=== PATIENT | female | born 1930 | race Caucasian/White ===

== ENCOUNTER → 2017-04-27 | Outpatient (CLI) | payer OTHER | LOC: FIMAGING 09:50 | PROVIDERS: ATTEND Internal Medicine | DX: N28.9 Disorder of kidney and ureter, unspecified (principal) ==

== ENCOUNTER 2017-08-21 11:26 | Inpatient (IN) | payer OTHER ==
--- NOTE | 2017-08-21 11:34 | EDPHY ---
H & P Time Seen by Provider: 08/21/17 11:28 HPI/ROS: CHIEF COMPLAINT: slurred speech/fall HISTORY OF PRESENT ILLNESS: The patient is an 87-year-old female who presents to the emergency department as a stroke alert. Per report, patient had a fall 615 this morning while getting out of bed. Around 1045 the patient had a 2nd fall while getting out of the shower. She fell backwards out of the shower onto the floor. The patient's daughter helped her up from the floor. She noticed that the patient had facial droop and slurring. This subsequently resolved. However, when EMS was present they again noticed the patient developed slurred speech and facial droop at 11:04 a.m. Those symptoms persisted until their arrival into the emergency department. Pt with mild dizziness. No headache. No nausea or vomiting. Patient states she has increased swelling in her lower extremity over the past few months. REVIEW OF SYSTEMS: My complete review of systems is negative except as mentioned in the HPI. Past Medical/Surgical History: Includes hypertension, diabetes Past surgical history: Includes recent thyroidectomy Social history: Patient lives at home Smoking Status: Never smoked Physical Exam: Vitals noted GENERAL: No acute distress, alert. HEENT: Eyes normal to inspection, normal pharynx, no signs of dehydration. NECK: No thyromegaly, no lymphadenopathy, supple. RESPIRATORY: Clear to auscultation bilaterally, no rales, rhonchi or wheezing. CVS: Regular rate and rhythm, no rubs, murmurs, or gallops. ABDOMEN: Soft, nontender, nondistended, no organomegaly. BACK: Normal to inspection, no CVA tenderness. Multiple abrasions. SKIN: Normal color, no rash, warm, dry. No pallor. EXTREMITIES: No pedal edema, no calf tenderness, no Homans sign or cords, no joint swelling. NEURO/PSYCH: Higher functions: Alert and Oriented x3. Slightly slurred speech. Normal cognition. Normal mood and affect. Cranial nerves: Normal as tested. Cerebellar: No gross incoordination. Peripheral exam: Decreased right upper extremity strength. Decreased bilateral lower extremity strength right greater than left. Normal sensation. Normal reflexes. NIHSS Facial palsy 2 Motor arm right 1 Motor leg right 3 Motor leg left 2 Dysarthria 1 Total 9 Constitutional: Initial Vital Signs Temperature (C) 37 C 08/21/17 11:26 Heart Rate 63 08/21/17 11:26 Respiratory Rate 18 08/21/17 11:26 Blood Pressure 165/83 H 08/21/17 11:26 O2 Sat (%) 93 08/21/17 11:26 O2 Delivery Mode Room Air O2 (L/minute) 2 Allergies/Adverse Reactions: ciprofloxacin [From Cipro] Allergy (Severe, Verified 04/09/15 17:25) codeine Allergy (Severe, Verified 04/09/15 17:25) Hives nitrofurantoin [Nitrofurantoin] Allergy (Verified 04/09/15 17:25) Penicillins Allergy (Verified 04/09/15 17:25) sulfamethoxazole [From Bactrim] Allergy (Verified 04/09/15 17:25) trimethoprim [From Bactrim] Allergy (Verified 04/09/15 17:25) Home Medications: Medication Instructions Recorded Metoprolol Tartrate [Lopressor 25 100 mg PO BID 05/27/11 mg (RX)] Simvastatin [Zocor 10 mg] 20 mg PO DAILY18 05/27/11 Tolterodine Tartrate [Detrol LA] 4 mg PO HS 05/27/11 metFORMIN HCL [Glucophage 500 mg 1,000 mg PO BIDMEAL 05/27/11 (*)] Hydrochlorothiazide [HCTZ (*)] 12.5 mg PO DAILY 07/15/13 Levothyroxine [Synthroid 125 mcg 150 mcg PO DAILY@0600 07/15/13 (*)] Januvia 50 mg 100 mg PO DAILY 04/09/15 Preservision Softgel 2 tab PO DAILY 12/14/15 Ranitidine HCl 150 mg PO BID 12/14/15 Medical Decision Making - Diagnostics Imaging Results: Imaging Impressions Head CT 08/21/17 11:28 Impression: 1. No acute intracranial process. 2. Age-appropriate generalized cerebral volume loss with chronic microvascular ischemic disease. ED Course/Re-evaluation: I met EMS on arrival. 1135: I spoke Dr. Garcia from [facility]. I discussed the case. We are awaiting CT results. 1140: I called radiology to obtain CT results. Pending 1142: I spoke with Dr. Bowser with CT results. Negative noncontrast head CT. I paged Dr. Garcia.' EKG shows normal sinus rhythm, normal rate, normal axis, normal intervals. There are no ST or T-wave abnormalities. EKG is normal as interpreted by me. 1153: I discussed the case with . He recommends tPA once the patient' s systolic blood pressures below 180. He recommended hydralazine. This was ordered and given. (hydralazine 10 mg IV) Awaiting for the patient's daughter to arrive. The patient consents to tPA administration. 1200: Repeat blood pressure is 182 systolic. HR 62. Labetalol 10 mg IV was given. Patient's blood pressure improved. TPA was given. Please refer the nursing note. I discussed the plan of care with the patient's daughter who arrived in the emergency department. I rechecked the patient on numerous occasions. She was stable throughout her stay. I discussed case with the hospitalist service. Patient will be admitted to the ICU. Differential Diagnosis: My differential includes but is not limited to ischemic CVA, hemorrhagic CVA, subdural hematoma, epidural hematoma, dissection, aneurysm, electrolyte abnormality, sugar abnormality Critical Care Time: The patient required 35 min of critical care time. This was exclusive of any unbundled procedure. This was due the patient's presentation, time spent at the bedside, frequent rechecks, tPA administration, consultation with Neurology. - Data Points Laboratory Results: Laboratory Results 08/21/17 11:38 08/21/17 11:38 08/21/17 08/21/17 08/21/17 11:38 11:38 11:38 WBC 10.24 10^3/uL H 10^3/uL (3.80-9.50) RBC 5.32 10^6/uL 10^6/uL (4.18-5.33) Hgb 15.9 g/dL g/dL (12.6-16.3) POC Hgb Hct 49.4 % H % (38.0-47.0) POC Hct MCV 92.9 fL fL (81.5-99.8) MCH 29.9 pg pg (27.9-34.1) MCHC 32.2 g/dL L g/dL (32.4-36.7) RDW 12.8 % % (11.5-15.2) Plt Count 224 10^3/uL 10^3/uL (150-400) MPV 10.1 fL fL (8.7-11.7) Neut % (Auto) Not Reported Lymph % (Auto) Not Reported [place] % (Auto) Not Reported Eos % (Auto) Not Reported Baso % (Auto) Not Reported Nucleat RBC Rel Count Not Reported Absolute Neuts (auto) Not Reported Absolute Lymphs (auto) Not Reported Absolute Monos (auto) Not Reported Absolute Eos (auto) Not Reported Absolute Basos (auto) Not Reported Absolute Nucleated RBC Not Reported Immature Gran % Not Reported Seg Neutrophils % 73.0 % % Band Neutrophils % 9.0 % % Lymphocytes % 10.0 % % Monocytes % 7.0 % % Eosinophils % 1.0 % % Basophils % 0 % % Metamyelocytes % 0 % % Myelocytes % 0 % % Promyelocytes % 0 % % Blast Cells % 0 % % Immature Gran # Not Reported Absolute Seg Neuts 7.48 10^/uL H 10^/uL (1.70-6.50) Absolute Band Neuts 0.92 10^3/uL H 10^3/uL (0.00-0.70) Absolute Lymphocytes 1.02 10^3/uL 10^3/uL (1.00-3.00) Absolute Monocytes 0.72 10^3/uL 10^3/uL (0.30-0.80) Absolute Eosinophils 0.10 10^3/uL 10^3/uL (0.03-0.40) Absolute Basophils 0.00 10^3/uL L 10^3/uL (0.02-0.10) Absolute Metamyelocyte 0.00 10^3/mL 10^3/mL (0.00-0.00) Absolute Myelocytes 0.00 10^3/mL 10^3/mL (0.00-0.00) Absolute Promyelocytes 0.00 10^3/uL 10^3/uL (0.00-0.00) Absolute Plasma Cells 0.00 10^3/uL 10^3/uL (0.00-0.00) Nucleated RBCs 0 /100 WBC /100 WBC (0-0) RBC/WBC/PLT Morphology NORMAL (NORMAL) Absolute Blast Cells 0.00 10^3/uL 10^3/uL (0.00-0.00) Plasma Cells % 0 % % Platelet Estimate ADEQUATE (ADEQ) PT 13.7 SEC SEC (12.0-15.0) INR 1.03 (0.83-1.16) APTT 28.2 SEC SEC (23.0-38.0) POC Sodium Sodium 140 mEq/L mEq/L (135-145) POC Potassium Potassium 4.9 mEq/L mEq/L (3.3-5.0) POC Chloride Chloride 104 mEq/L mEq/L (97-110) Carbon Dioxide 26 mEq/l mEq/l (22-31) Anion Gap 10 mEq/L mEq/L (8-16) POC BUN BUN 41 mg/dL H mg/dL (7-23) Creatinine 1.3 mg/dL H mg/dL (0.6-1.0) POC Creatinine Estimated GFR 39 Glucose 216 mg/dL H mg/dL (70-100) POC Glucose Calcium 10.0 mg/dL mg/dL (8.5-10.4) 08/21/17 11:36 WBC RBC Hgb POC Hgb 16.0 gm/dL gm/dL (12.6-16.3) Hct POC Hct 47 % % (38-47) MCV MCH MCHC RDW Plt Count MPV Neut % (Auto) Lymph % (Auto) [place] % (Auto) Eos % (Auto) Baso % (Auto) Nucleat RBC Rel Count Absolute Neuts (auto) Absolute Lymphs (auto) Absolute Monos (auto) Absolute Eos (auto) Absolute Basos (auto) Absolute Nucleated RBC Immature Gran % Seg Neutrophils % Band Neutrophils % Lymphocytes % Monocytes % Eosinophils % Basophils % Metamyelocytes % Myelocytes % Promyelocytes % Blast Cells % Immature Gran # Absolute Seg Neuts Absolute Band Neuts Absolute Lymphocytes Absolute Monocytes Absolute Eosinophils Absolute Basophils Absolute Metamyelocyte Absolute Myelocytes Absolute Promyelocytes Absolute Plasma Cells Nucleated RBCs RBC/WBC/PLT Morphology Absolute Blast Cells Plasma Cells % Platelet Estimate PT INR APTT POC Sodium 141 mEq/L mEq/L (135-145) Sodium POC Potassium 4.7 mEq/L mEq/L (3.3-5.0) Potassium POC Chloride 105 mEq/L mEq/L (97-110) Chloride Carbon Dioxide Anion Gap POC BUN 39 mg/dL H mg/dL (7-23) BUN Creatinine POC Creatinine 1.4 mg/dL H mg/dL (0.6-1.0) Estimated GFR Glucose POC Glucose 229 mg/dL H mg/dL (70-100) Calcium Point of Care Test Results: Chemistry 08/21/17 11:36 POC Sodium 141 mEq/L mEq/L (135-145) POC Potassium 4.7 mEq/L mEq/L (3.3-5.0) POC Chloride 105 mEq/L mEq/L (97-110) POC BUN 39 mg/dL H mg/dL (7-23) POC Creatinine 1.4 mg/dL H mg/dL (0.6-1.0) POC Glucose 229 mg/dL H mg/dL (70-100) ISTAT H&H 08/21/17 11:36 POC Hgb 16.0 gm/dL gm/dL (12.6-16.3) POC Hct 47 % % (38-47) Departure - Departure Disposition: [facility] Inpatient Acute Clinical Impression: CVA (cerebral vascular accident) Qualifiers: CVA mechanism: unspecified Qualified Code(s): I63.9 - Cerebral infarction, unspecified Condition: Good
--- NOTE | 2017-08-21 11:44 | CPEKG ---
Heart Rate: 60 RR Interval: 1000 P-R Interval: 160 QRSD Interval: 78 QT Interval: 416 QTC Interval: 416 P [place]: 22 QRS [place]: 2 T Wave [place]: 53 EKG Severity - NORMAL ECG - EKG Impression: SINUS RHYTHM Electronically Signed By: Ignacio Olmos 24-Aug-2017 16:31:34
[2017-08-21] MEDS ORDERED: ALTEPLASE 100 MG/100 ML VIAL IV ONE ×3 (11:46→12:13)
[2017-08-21] MEDS ORDERED: hydrALAZINE 20 MG/ML VIAL ONE (11:53)
[2017-08-21] MEDS ORDERED: hydrALAZINE 20 MG/ML VIAL IVP ONE (11:54)
[2017-08-21] MEDS ORDERED: LABETALOL HCL 5 MG/ML 20 ML MDV ONE (11:58)
[2017-08-21] MEDS ORDERED: LABETALOL HCL 5 MG/ML 20 ML MDV IVP ONE (12:02)
[2017-08-21 12:12] LABS: PLATELET COUNT 224 10^3/uL (150-400)
[2017-08-21] MEDS ORDERED: ALTEPLASE 1 MG/ML SYR IV ONE (12:13)
[2017-08-21 12:24] LABS: INR 1.03 (0.83-1.16); PROTIME(PATIENT) 13.7 SEC (12.0-15.0)
[2017-08-21] MEDS ORDERED: NS 50 ML BAG IV ONE (12:45)
[2017-08-21] MEDS ORDERED: ONDANSETRON DISINTEGRATING 4 MG TAB PO PRN (12:56)
[2017-08-21] MEDS ORDERED: ONDANSETRON 4 MG/2 ML VIAL IVP PRN (12:56)
[2017-08-21] MEDS ORDERED: ACETAMINOPHEN 325 MG TAB PO PRN (12:56)
[2017-08-21] MEDS ORDERED: D5W 1/2 NS W/ 20 KCl/L 1,000 ML IV SCH (13:00)
[2017-08-21] MEDS ORDERED: hydrALAZINE 20 MG/ML VIAL IVP PRN (13:01)
[2017-08-21] MEDS ORDERED: IOPAMIDOL (ISOVUE 370) 100 ML BTL IV ONE (13:04)
[2017-08-21] MEDS ORDERED: D5W 1/2 NS 1,000 ML IV SCH (17:00)
[2017-08-21] MEDS ORDERED: D50W 25 GM/50 ML SYR IVP PRN (18:10)
--- NOTE | 2017-08-21 18:17 | PDGENHP ---
History and Physical - Chief Complaint Acute paresis - History of Present Illness Primary care provider: Dr. Rocio Vargas Primary surgeon: Dr. Tyson Crawford Primary cardiology: [facility] Primary insurance agency sales manager: Dr. Garcia HPI: 87-year-old female presenting with acute unilateral paresis and associated dysarthria. The patient was a stroke alert presenting to our emergency department with the following time course: The patient had been feeling well on the day prior to presentation, had had normal oral intake, and had gone to bed on 08/20 without any symptoms. Upon awakening at 6:15 a.m. On the day of presentation, the patient fell while she was attempting to get out of bed. The fall was unwitnessed, and the patient remained on the floor for approximately 3 hr. The patient's daughter found her on the floor sometime after 9:00 a.m., and helped the patient get up and get into the bathroom. While the patient was attempting to clean herself up at approximately 10:00 a.m., she experienced a recurrent fall, falling backwards and striking her head and buttocks. She experienced some trauma and laceration from glass on her buttocks. At this time, the patient's daughter noted that her speech was particularly slurred, she was experiencing a notable right-sided facial droop, and she was having difficulty moving her right upper extremity and right lower extremity. The patient called EMS and after EMS arrived, the symptoms began to improve. Around 11:00 a.m., the patient's symptoms began to reoccur as she was being transported to [facility]. After arrival, the patient's NIH stroke scale was 9, she was evaluated by [facility], and after receiving IV hydralazine and IV labetalol, she received IV tPA. Her head CT demonstrated no intracranial hemorrhage, her CT angiogram demonstrated no large vessel obstructive lesions, and the patient had no clearly identifiable contraindications to tPA. The patient does have Eliquis on her home medication reconciliation list, but the patient is fairly certain that she has not been taking this medication at home. She is uncertain as to why she has been prescribed this medication. History Information - Allergies/Home Medication List Allergies/Adverse Reactions: ciprofloxacin [From Cipro] Allergy (Severe, Verified 04/09/15 17:25) codeine Allergy (Severe, Verified 04/09/15 17:25) Hives nitrofurantoin [Nitrofurantoin] Allergy (Verified 04/09/15 17:25) Penicillins Allergy (Verified 04/09/15 17:25) sulfamethoxazole [From Bactrim] Allergy (Verified 04/09/15 17:25) trimethoprim [From Bactrim] Allergy (Verified 04/09/15 17:25) Home Medications: Metoprolol Tartrate [Lopressor 25 mg (RX)] 100 mg PO BID 05/27/11 [Last Taken ] Simvastatin [Zocor 10 mg] 20 mg PO DAILY18 05/27/11 [Last Taken 08/20/17] Tolterodine Tartrate [Detrol LA] 4 mg PO HS 05/27/11 [Last Taken 08/07/17] Levothyroxine [Synthroid 125 mcg (*)] 150 mcg PO DAILY@0600 07/15/13 [Last Taken 08/20/17] Apixaban [Eliquis] 2.5 mg PO BID 08/21/17 [Last Taken Unknown] C/E/Zn/Cu/OM3/DHA/EPA/LUT/ZEAX [Preservision Areds 2 Softgel] 2 each PO DAILY [Last Taken 08/20/17] Insulin Glargine [Lantus 100 UNITS/ML (*)] 5 units SC HS 08/21/17 [Last Taken ] Ranitidine HCl 150 mg PO BID 08/21/17 [Last Taken 08/20/17] Spironolactone [Spironolactone] 25 mg PO DAILY 08/21/17 [Last Taken Unknown] sitaGLIPtin PHOSPHATE [Januvia 100 MG (*)] 100 mg PO DAILY 08/21/17 [Last Taken 08/20/17] I have personally reviewed and updated: family history, medical history, social history, surgical history - Past Medical History COPD, DVT (Approximately 2 years ago, maybe receiving Eliquis but it is somewhat unclear) Additional medical history: Chronic kidney disease stage 3 with baseline creatinine between 1.6-2.0. Hypertension. Diabetes mellitus with last hemoglobin A1c 7.5% in July of 2016. Hurthle cell thyroid cancer. Urinary incontinence - Surgical History Additional surgical history: Total thyroidectomy July of 2013. Tonsillectomy. Bunionectomy. Hysterectomy - Family History Additional family history: Daughter with CVA secondary to carotid stenosis - Social History Smoking Status: Never smoked Alcohol Use: None Drug Use: None Additional social history: Independent in ADLs, lives with daughter and home Review of Systems Review of Systems: ROS: 10pt was reviewed & negative except for what was stated in HPI & below Neurological: Reports: paresthesia, weakness, other (Dysarthria) Physical Exam Physical Exam: Temp Pulse Resp BP Pulse Ox 36.7 C 70 22 H 134/63 H 98 08/21/17 16:45 08/21/17 18:00 08/21/17 18:00 08/21/17 18:00 08/21/17 18:00 O2 (L/minute) 1 Constitutional: no apparent distress, not in pain, chronically ill appearing, uncomfortable Eyes: PERRL, anicteric sclera Ears, Nose, Mouth, Throat: moist mucous membranes, hearing normal, ears appear normal, no oral mucosal ulcers Cardiovascular: regular rate and rhythym, systolic murmur (2/6 at the sternum), No irregularly irregular, No tachycardia, No edema Respiratory: no respiratory distress, no rales or rhonchi, clear to auscultation Gastrointestinal: normoactive bowel sounds, soft, non-tender abdomen, no palpable masses Skin: warm, other (Skin breaks on posterior buttocks, bleeding) Neurologic: AAOx3, sensation intact bilaterally, weakness (Right lower extremity 1/5 motor strength, right upper extremity 0/5 motor strength, right- sided facial palsy), other (Hemiplegia both eyes to the right past the midline) Psychiatric: interacting appropriately, not anxious, not encephalopathic, thought process linear, flat affect Lab Data & Imaging Review 08/21/17 11:38 08/21/17 11:38 WBC 10.24 10^3/uL (3.80-9.50) H 08/21/17 11:38 RBC 5.32 10^6/uL (4.18-5.33) 08/21/17 11:38 Hgb 15.9 g/dL (12.6-16.3) 08/21/17 11:38 POC Hgb 16.0 gm/dL (12.6-16.3) 08/21/17 11:36 Hct 49.4 % (38.0-47.0) H 08/21/17 11:38 POC Hct 47 % (38-47) 08/21/17 11:36 MCV 92.9 fL (81.5-99.8) 08/21/17 11:38 MCH 29.9 pg (27.9-34.1) 08/21/17 11:38 MCHC 32.2 g/dL (32.4-36.7) L 08/21/17 11:38 RDW 12.8 % (11.5-15.2) 08/21/17 11:38 Plt Count 224 10^3/uL (150-400) 08/21/17 11:38 MPV 10.1 fL (8.7-11.7) 08/21/17 11:38 Neut % (Auto) Not Reported 08/21/17 11:38 Lymph % (Auto) Not Reported 08/21/17 11:38 [place] % (Auto) Not Reported 08/21/17 11:38 Eos % (Auto) Not Reported 08/21/17 11:38 Baso % (Auto) Not Reported 08/21/17 11:38 Nucleat RBC Rel Count Not Reported 08/21/17 11:38 Absolute Neuts (auto) Not Reported 08/21/17 11:38 Absolute Lymphs (auto) Not Reported 08/21/17 11:38 Absolute Monos (auto) Not Reported 08/21/17 11:38 Absolute Eos (auto) Not Reported 08/21/17 11:38 Absolute Basos (auto) Not Reported 08/21/17 11:38 Absolute Nucleated RBC Not Reported 08/21/17 11:38 Immature Gran % Not Reported 08/21/17 11:38 Seg Neutrophils % 73.0 % 08/21/17 11:38 Band Neutrophils % 9.0 % 08/21/17 11:38 Lymphocytes % 10.0 % 08/21/17 11:38 Monocytes % 7.0 % 08/21/17 11:38 Eosinophils % 1.0 % 08/21/17 11:38 Basophils % 0 % 08/21/17 11:38 Metamyelocytes % 0 % 08/21/17 11:38 Myelocytes % 0 % 08/21/17 11:38 Promyelocytes % 0 % 08/21/17 11:38 Blast Cells % 0 % 08/21/17 11:38 Immature Gran # Not Reported 08/21/17 11:38 Absolute Seg Neuts 7.48 10^/uL (1.70-6.50) H 08/21/17 11:38 Absolute Band Neuts 0.92 10^3/uL (0.00-0.70) H 08/21/17 11:38 Absolute Lymphocytes 1.02 10^3/uL (1.00-3.00) 08/21/17 11:38 Absolute Monocytes 0.72 10^3/uL (0.30-0.80) 08/21/17 11:38 Absolute Eosinophils 0.10 10^3/uL (0.03-0.40) 08/21/17 11:38 Absolute Basophils 0.00 10^3/uL (0.02-0.10) L 08/21/17 11:38 Absolute Metamyelocyte 0.00 10^3/mL (0.00-0.00) 08/21/17 11:38 Absolute Myelocytes 0.00 10^3/mL (0.00-0.00) 08/21/17 11:38 Absolute Promyelocytes 0.00 10^3/uL (0.00-0.00) 08/21/17 11:38 Absolute Plasma Cells 0.00 10^3/uL (0.00-0.00) 08/21/17 11:38 Nucleated RBCs 0 /100 WBC (0-0) 08/21/17 11:38 RBC/WBC/PLT Morphology NORMAL (NORMAL) 08/21/17 11:38 Absolute Blast Cells 0.00 10^3/uL (0.00-0.00) 08/21/17 11:38 Plasma Cells % 0 % 08/21/17 11:38 Platelet Estimate ADEQUATE (ADEQ) 08/21/17 11:38 PT 13.7 SEC (12.0-15.0) 08/21/17 11:38 INR 1.03 (0.83-1.16) 08/21/17 11:38 APTT 28.2 SEC (23.0-38.0) 08/21/17 11:38 POC Sodium 141 mEq/L (135-145) 08/21/17 11:36 Sodium 140 mEq/L (135-145) 08/21/17 11:38 POC Potassium 4.7 mEq/L (3.3-5.0) 08/21/17 11:36 Potassium 4.9 mEq/L (3.3-5.0) 08/21/17 11:38 POC Chloride 105 mEq/L (97-110) 08/21/17 11:36 Chloride 104 mEq/L (97-110) 08/21/17 11:38 Carbon Dioxide 26 mEq/l (22-31) 08/21/17 11:38 Anion Gap 10 mEq/L (8-16) 08/21/17 11:38 POC BUN 39 mg/dL (7-23) H 08/21/17 11:36 BUN 41 mg/dL (7-23) H 08/21/17 11:38 Creatinine 1.3 mg/dL (0.6-1.0) H 08/21/17 11:38 POC Creatinine 1.4 mg/dL (0.6-1.0) H 08/21/17 11:36 Estimated GFR 39 08/21/17 11:38 Glucose 216 mg/dL (70-100) H 08/21/17 11:38 POC Glucose 229 mg/dL (70-100) H 08/21/17 11:36 Calcium 10.0 mg/dL (8.5-10.4) 08/21/17 11:38 POC Troponin I 0.01 ng/mL (0.00-0.08) 08/21/17 11:36 Visualized and Interpreted EKG results: Yes EKG Interpretation: Positive for: other (Normal sinus rhythm with Q-wave in lead 3 and AVF) Assessment & Plan Assessment: 87-year-old female presents with acute CVA Plan: 1. Acute CVA. Initial NIH stroke scale 9, received tPA -persistent neurologic symptoms include right-sided hemiplegia, dysarthria -suspect left-sided motor cortex CVA, getting MRI -high risk for intracranial hemorrhage, neuro checks in ICU, get head CT if neuro exam changing -seen by [facility] emergency department, in-house Neurology consultation tomorrow a.m. -send hemoglobin A1c and lipid panel -get echo with bubble -monitor on telemetry for AFib -hold on anti-platelet therapy until 24 hr after tPA -hold on therapy evaluations until 24 hr after tPA, patient most likely be a good inpatient rehab candidate 2. Chronic kidney disease stage 3. Reviewed outside records, most recent creatinine level 1.8 on 03/16/2017, currently 1.3 -she is status post IV contrast for CT angio, continue on IV fluids overnight and monitor renal function closely 3. Diabetes mellitus with hyperglycemia. Most likely exacerbated with CVA, placed on insulin sliding scale with glucometer checks, continue Lantus 5 at bedtime as well as Januvia in a.m. If not hypoglycemic 4. Hypertension. Continue beta-naun, IV hydralazine if SBP greater than 180 5. COPD. Chronic, no indication of acute exacerbation 6. History of DVT. 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 Status post [employer]PER[employer] eval, regular with recommendations Code. Do not resuscitate per patient, daughter is POA Prophylaxis. High risk, SCDs, hold pharmacologic given tPA Disposition. Anticipated discharge uncertain this time, anticipated length stay is greater than 48 hr warranting inpatient admission status reasonable medical necessity including acute CVA. 40 min of critical care time spent with this patient, daughter, at bedside, coordinating care with Dr. Andi Galeana in the ICU, specifically addressing patient's acute CVA requiring tPA, rendering her critically ill with high risk of worsening morbidity and/or mortality and requiring immediate ICU level monitoring.
[2017-08-21] MEDS ORDERED: INSULIN REGULAR HUMAN 100 UNIT/ML UNIT ONE (18:38)
[2017-08-21] MEDS: ATORVASTATIN CALCIUM 10 MG TAB PO SCH (18:43)
[2017-08-21] MEDS: NS 1,000 ML IV SCH (20:30)
[2017-08-21] MEDS: INSULIN REGULAR HUMAN 100 UNIT/ML UNIT SC SCH (20:30)
[2017-08-21] MEDS: METOPROLOL TARTRATE 100 MG TAB PO SCH (20:31)
[2017-08-21] MEDS: FAMOTIDINE 20 MG TAB PO SCH (20:31)
[2017-08-21] MEDS: TOLTERODINE TARTRATE 2 MG EXT REL CAP PO SCH (20:32)
[2017-08-21] MEDS: INSULIN GLARGINE 100 UNITS/ML SYRINGE SC SCH (21:19)
[2017-08-22] MEDS: NS 1,000 ML IV SCH ×2 (05:12→17:13)
[2017-08-22] MEDS: LEVOTHYROXINE 150 MCG TAB PO SCH (05:14)
--- NOTE | 2017-08-22 08:34 | GCON ---
[f rep st] CONSULTATION NEUROLOGIC CONSULTATION. REFERRING PHYSICIAN: Vinay Mixon MD HISTORY: The patient is an 87-year-old woman who I am asked to see in neurologic consultation regard ing stroke. She presented to the hospital yesterday after having a fall at 6:15 in the morning and cruz eaton had a 2nd fall at 10:45 getting out of the shower and fell to the ground. She was noted to have facial droop and slurred speech that improved. EMS came and at 11:04 a.m. was noted to have slurred speech and right facial droop. She came to the emergency room where she was evaluated and found to h ave NIH stroke scale of 9 and received IV tPA after negative head CT. Since receiving tPA, she has c ontinued to have right-sided deficits and has no function on the right side in terms of movement. Esha roman has severe dysarthria and facial droop. The nurse says that she does not track fully to the right. She does not have a prior history of stroke. She has had CT angiogram of the head and neck showing no large vessel stenoses. She had a venous shruthi dy of the lower extremities showing no evidence of a DVT. There is a history of a DVT in 2013. She currently tells me that she is aware she has had a stroke and does not complain of anything more specific than being aware of her deficits. PAST MEDICAL HISTORY: Notable for COPD and history of a DVT 2 years ago and apparently has been on E liquis. She has some chronic renal insufficiency, hypertension, diabetes, and some thyroid cancer. FAMILY HISTORY: Notable for stroke in a daughter with carotid disease. The patient never smoked. N o alcohol. She is normally independent. Lives with her daughter at home. HOME MEDICATIONS: Lopressor, Zocor, Detrol, Synthroid, Eliquis, PreserVision, Lantus, ranitidine, sp ironolactone, Januvia. ALLERGIES: Ciprofloxacin, codeine, nitrofurantoin, penicillin, Bactrim. In reviewing the medications, it was felt that she probably was not actually taking Eliquis at the [facility] which is why she was thought to be safe for tPA administration. REVIEW OF SYSTEMS: A 10-point review of systems is unremarkable except for that noted above. PHYSICAL EXAMINATION: VITAL SIGNS: Blood pressure 147/50, pulse of 71, respirations 16, temperature is 37. GENERAL: She is an elderly woman, lying in the bed in no acute distress. EYES: Clear. NE CK: Supple. No bruits or masses. CARDIAC: Regular rate and rhythm. No murmur. EXTREMITIES: No cyanosis or edema. NEUROLOGIC: She is lethargic, but arousable and communicates during the intervie w without losing consciousness. She moves sluggishly and answers slowly with a rather prominent dysa rthria for which at times I cannot understand her because of slurring of the speech or low volume to her voice, but most of the time I can eventually understand what she is saying. She can name objects and follow commands. She is not showing definite aphasia, but rather severe dysarthria as a promine nt feature. Pupils 1 mm with minimal reactivity. She has a left gaze preference and I do not detect a definite visual field loss. The extraocular movements are characterized by trouble tracking past the midline toward the right, but tracks to the left. She has severe right lower facial weakness wit h minimal movement and palate elevates poorly. Tongue protrudes midline. Facial sensation is preser gemma. Motor exam, she has flaccid right hemiplegia. Sensation seems to be preserved bilaterally for temperature and light touch. Reflexes are brisk throughout with a right Babinski sign. LABORATORY DATA: Chemistries note a creatinine of 1.3. Her LDL cholesterol is 52. She is on a stat in therapy. Diagnostic studies as outlined above. The patient's NIH Stroke Scale is 13. IMPRESSION: The patient has suffered a left hemisphere ischemic infarction with embolic versus local thrombotic cause. At this point, we do not see large vessel disease and echocardiogram is pending. She is not on anti-platelet therapy for now because of receiving tPA. Her prognosis is uncertain at this point, but will need prolonged rehabilitation most likely. We will resume anti-platelet therap y or start antiplatelet therapy after head CT is obtained later today to confirm no significant hemor rhage. She will go back on her statin therapy. Additional workup will be determined based on her cl inical course, but may include prolonged cardiac monitoring in the future. Total unit time of 70 minutes. /[id number]/MODL
--- NOTE | 2017-08-22 09:41 | ASMTCMCOM ---
CM Note CM Note Notes: 87yr old female admitted for Acute CVA, CKD-stage 3, DM, HTN. She has a Hx of COPD, DVT, HTN, DM, Thyroid CA-thyroidectomy, Urinary incontinence. Daughter Lorene is her MPOA. She is a DNR. Therapies to eval. CM to follow. Date Signed: 08/22/2017 09:40 AM Electronically Signed By:Amina Mcfarland LCSW
[2017-08-22] MEDS: FAMOTIDINE 20 MG TAB PO SCH ×2 (09:58→19:58)
[2017-08-22] MEDS: METOPROLOL TARTRATE 100 MG TAB PO SCH ×2 (09:58→19:57)
--- NOTE | 2017-08-22 10:01 | ECHO ---
[email or web address] [address] [address] Main: [phone] Fax: Transthoracic Echocardiogram Name: ASHLEY DENG MR#: [id number] Study Date: 08/21/2017 Study Time: 02:21 PM Date of : 1930 Age: 87 year(s) Height: 165.1 cm (65 in.) Weight: 64.41 kg (142 lb.) BSA: 1.71 m2 Gender: Female Examination: Echo Indication: Ischemic stroke Image Quality: Adequate Contrast: Requested by: Vinay Mixon BP: 145 mmHg/76 mmHg Heart Rate: Rhythm: Indication: Ischemic stroke Procedure Staff Synthetic Filament Extruder: Jacqueline Brown [facility] Reading Physician: Frantz Villeda MD Requesting Provider: Conclusions: Normal size left ventricle. Normal global systolic LV function. EF is 60 %. Grade 1 diastolic dysfunction (abnormal relaxation). Normal RV function. The left atrium is normal in size. An agitated saline study was performed and was negative for intracardiac shunting. There is mild thickening of the mitral valve leaflets. No mitral stenosis is present. The aortic valve is tri-leaflet. No aortic valve stenosis is present. The pulmonary artery pressure is mildly increased. Measurements: Chambers Valvular Assessment AV/MV Valvular Assessment TV/PV Normal Normal Normal Name Value Range Name Value Range Name Value Range Ao Silvia (2D): 2.7 cm (1.4 cm-2.6 AV Vmax: 1.87 m/s (1 m/s-1.7 TR Vmax: 2.84 mm/s ( - ) cm) m/s) TR PGmax: 32 mmHg ( - ) IVSd (2D): 1.0 cm (0.6 cm-1.1 AV maxP mmHg ( - ) syst. PAP: 37 mmHg ( - ) cm) AV meanP mmHg ( - ) PV Vmax: 1.15 m/s (0.6 m/s-0.9 LVDd (2D): 4.3 cm (3.9 cm-5.3 VALERIA (VTI): 2.0 cm ( - ) m/s) cm) MV E Vmax: 0.65 m/s ( - ) PV PGmax: 5 mmHg ( - ) LVDs (2D): 2.8 cm (2.1 cm-4 MV A Vmax: 1.07 m/s ( - ) cm) MV E/A: 0.61 ( - ) LVPWd (2D): 1.0 cm ( - ) MV PHT: 0.075 s ( - ) LVOTd 2.0 cm 2.0 cm mm MVA (PHT): 2.9 s ( - ) LVEF (BP): 60 % (>=55 %) RVDd(2D): 2.9 cm (1.9 cm-3.8 cmmm) Patient: ASHLEY DENG Study Date: 08/21/2017 Page 1 of 2 02:21 PM Continued Measurements: Chambers Valvular Assessment AV/MV Valvular Assessment TV/PV Name Value Name Value Name Value LADs: 3.6 cm MV DecTime: 246 m/s CVP (est.): 5 mmHg LADs Lon.3 cm MV E' Septal: 0.05 m/s LA Area: 17.2 cm2 MV E/E' Septal: 13.60 LA Volume: 50 ml MV E/E' Lateral: 9.60 LA Volume Index: 29.2 ml/m2 RA Area: 15.0 cm2 Additional Vessels Name Value Ao Ascendin.7 cm Inferior Vena Cava: 1.2 cm Findings: Left Ventricle: Normal size left ventricle. No LV hypertrophy. Normal global systolic LV function. EF is 60 %. No regional wall motion abnormality. Grade 1 diastolic dysfunction (abnormal relaxation). Right Ventricle: Normal size right ventricle. Normal RV function. Left Atrium: The left atrium is normal in size. An agitated saline study was performed and was negative for intracardiac shunting. Right Atrium: The right atrium is normal in size. Mitral Valve: There is mild thickening of the mitral valve leaflets. Mild mitral valve leaflet calcification is present. Moderate mitral annular calcification. Mild mitral valve regurgitation is present. No mitral stenosis is present. Aortic Valve: The aortic valve is tri-leaflet. Aortic sclerosis is present. Trivial aortic valve regurgitation. No aortic valve stenosis is present. Tricuspid Valve: The tricuspid valve is normal in appearance and function. Mild tricuspid regurgitation is present. The pulmonary artery pressure is mildly increased. Right ventricular systolic pressure measures 37mmHg. Pulmonic Valve: The pulmonic valve is normal in appearance and function. Trivial to mild pulmonic valve regurgitation. Aorta: The aorta is normal. Normal size aortic root measuring 2.7 cm. Normal size ascending aorta measuring 2.7 cm. IVC: The IVC is normal sized. Pericardium: No pericardial effusion. No pleural effusion. (No Signature Object) Patient: ASHLEY DENG Study Date: 08/21/2017 Page 2 of 2 02:21 PM [id number]
[2017-08-22] MEDS: INSULIN REGULAR HUMAN 100 UNIT/ML UNIT SC SCH ×4 (10:03→21:30)
[2017-08-22] MEDS: PRESERVISION AREDS2 FORMULA EYE VIT 1 EACH PO SCH ×2 (10:04→17:07)
--- NOTE | 2017-08-22 15:16 | HOSPPROG ---
Hospitalist Progress Note Assessment/Plan: 87-year-old female presents with acute CVA Plan: 1. Acute CVA. Initial NIH stroke scale 9, received tPA, lacunar infarct internal capsule on MRI -persistent neurologic symptoms include right-sided hemiplegia, dysarthria-- improving slowly -will need IP rehab, working on that 2. Chronic kidney disease stage 3. Reviewed outside records, most recent creatinine level 1.8 on 03/16/2017, presented at 1.3 but improved overnight to 1.1 -she is status post IV contrast for CT angio, monitor renal function closely 3. Diabetes mellitus with hyperglycemia. Most likely exacerbated with CVA, placed on insulin sliding scale with glucometer checks, continue Lantus 5 at bedtime as well as Januvia in a.m. 4. Hypertension. Continue beta-naun, IV hydralazine if SBP greater than 180 5. COPD. Chronic, no indication of acute exacerbation 6. History of DVT. 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 Status post CASTING AGENT eval, regular with recommendations Code. Do not resuscitate per patient, daughter is MD LOZANO Prophylaxis. High risk, SCDs, hold pharmacologic given tPA Disposition. IP status Subjective: no significant overnight events, patient continues to have significant dysarthria Objective: Vital Signs Temp Pulse Resp BP Pulse Ox 36.5 C 60 17 157/64 H 94 08/22/17 12:15 08/22/17 13:00 08/22/17 13:00 08/22/17 13:00 08/22/17 13:00 Laboratory Results 08/22/17 04:40 08/21/17 08/22/17 08/23/17 05:59 05:59 05:59 Intake Total 1896 Output Total 750 Balance 1146 PT 13.7 SEC (12.0-15.0) 08/21/17 11:38 INR 1.03 (0.83-1.16) 08/21/17 11:38 awake alert anicteric op clear rrr no mrg cta b soft nt nd no cce warm dry well perfused dysarthric, right hemiparesis ICD10 Worksheet Patient Problems: Problems Problem Status Onset Thyroid mass Acute thyroid mass Acute CVA (cerebral vascular accident) Acute
--- NOTE | 2017-08-22 15:34 | ASMTCMCOM ---
CM Note CM Note Notes: Therapies have evaluated and recommend In-pt Rehab. [facility] choice [facility]pt [facility]hab, 2nd choice [facility]. Sent referrals to both. Date Signed: 08/22/2017 03:34 PM Electronically Signed By:Amina Mcfarland LCSW
--- NOTE | 2017-08-22 16:22 | GCON ---
[f rep st] CONSULTATION A PULMONARY/CRITICAL CARE CONSULTATION DATE OF CONSULTATION: 08/21/2017 REFERRING PHYSICIAN: Vinay Mixon MD REASON FOR REFERRAL: Evaluation and management of weakness/CVA, COPD. HISTORY: The patient is an 87-year-old woman who was in her usual state of health when she woke up a t about 6:15 a.m. and fell when she was trying to get out of bed. This was unwitnessed. She lay on the floor for about 3 hours. Her daughter found her at 9 a.m., and helped her to get to the bathroom . At about 10 a.m., the patient had another fall and fell backwards and hit her head. It was at katherin t time that the patient's daughter noticed that her speech was slurred and she had a right-sided faci al droop. EMS was called. The patient was brought to the emergency department. She had an NIH Stro ke Scale of 9, was evaluated by [facility]. She was treated with antihypertensives due to a systolic blood pressure greater than 180. She was then given tPA at about 12:15. This has been comp leted. The patient continues to have right-sided facial droop and hemiplegia. PAST MEDICAL HISTORY: 1. Chronic kidney disease stage 3. 2. Diabetes. 3. COPD. 4. History of DVT. This was apparently approximately 2 years ago. MEDICATIONS: Metoprolol, simvastatin, Detrol, levothyroxine, Eliquis (apparently not taken), insulin , ranitidine, spironolactone, Januvia. ALLERGIES: Ciprofloxacin, codeine, nitrofurantoin, penicillin, Bactrim. FAMILY HISTORY: Positive for a CVA in her daughter due to carotid stenosis. SOCIAL HISTORY: The patient has never smoked and denies alcohol use. REVIEW OF SYSTEMS: A 10-point review of systems adds nothing to the History of Present Illness. PHYSICAL EXAMINATION: GENERAL: The patient is awake, alert, and in no acute distress. VITAL SIGNS: Blood pressure is 135/49 with a heart rate of 68. She is afebrile. Oxygen saturations are 99% on 1 L. HEENT: Normocephalic and atraumatic. No icterus. NECK: No adenopathy. Trachea is midline. CHEST: Clear to auscultation. CARDIAC: Regular rate and rhythm without murmur. ABDOMEN: Soft, n ontender. Bowel sounds are present. EXTREMITIES: No clubbing, cyanosis, or edema. NEURO: The pat iejr is awake and alert. She follows commands promptly. She has a right-sided facial droop and 0/5 strength in her right upper and lower extremities. LABORATORY/IMAGING DATA: White blood count is 10.2. Creatinine is 1.3. INR is 1.0. Glucose is [address] scan of the head shows no acute intracranial process. Images were reviewed by me. An ultras ound of the lower extremities shows no evidence of DVT. ASSESSMENT: 1. Acute cerebrovascular accident. The patient presented with a little over an hour of symptoms of right-sided hemiparesis and dysarthria. She has received tissue plasminogen activator. Her examinat ion remains fairly stable. 2. History of chronic obstructive pulmonary disease. The patient carries a diagnosis of chronic obs tructive pulmonary disease, but does not have a smoking history and is not on any medications for thi s. 3. History of deep vein thrombosis. This was several years ago. The patient is apparently supposed to be on Eliquis, but has not been taking it. 4. Diabetes. The patient's blood sugars have been a bit high here, likely due to stress. She is ma naged with insulin and an oral hypoglycemic. 5. Hypertension. The patient had hypertension upon presentation in the emergency department, but th is was controlled with intravenous hydralazine and metoprolol. RECOMMENDATIONS: 1. Continue bedrest and ICU monitoring. 2. Monitor blood pressure, with a goal systolic blood pressure less than 180. 3. Physical therapy, Speech therapy, and Occupational therapy will see the patient tomorrow to begin a rehab evaluation. /[id number]/MODL
--- NOTE | 2017-08-22 16:36 | PDINTPN ---
Health Manager Progress Note Assessment/Plan: Assessment: Left CVA: Internal capsule lacunar infarct. Slight improvement s/p tPA. HTN: SBP 140-150, controlled with PO metoprolol and PRN hydralazine. Diabetes: BSs 200s->100s now on Januvia, Lantus, and SSI. Elevated HgbA1c suggests poor control. Plan: PT/OT/ST. Continue to follow glucose, Rx with SSI. Scheduled metoprolol and PRN hydralazine for BP. Dysphagia diet as per ST. Begin discharge planning for probable rehab or SNF placement. Antiplatelet therapy to start per neurology. 08/22/17 16:51 Subjective: Still with right-sided weakness. Dysarthria persists but is improved. Denies pain. Swallowing without Objective: Vital Signs Temp Pulse Resp BP Pulse Ox 36.5 C 60 17 157/64 H 94 08/22/17 12:15 08/22/17 13:00 08/22/17 13:00 08/22/17 13:00 08/22/17 13:00 Laboratory Results 08/22/17 04:40 08/21/17 08/22/17 08/23/17 05:59 05:59 05:59 Intake Total 1896 Output Total 750 Balance 1146 PT 13.7 SEC (12.0-15.0) 08/21/17 11:38 INR 1.03 (0.83-1.16) 08/21/17 11:38 MRI: Left lacunar infarct in posterior internal capsule. Images reviewed by me. Laboratory Tests 08/22/17 04:40 Hemoglobin A1c 9.8 H Physical Exam - Physical Exam General Appearance: alert, no apparent distress EENT: normal ENT inspection Neck: normal inspection Respiratory: lungs clear, normal breath sounds Cardiac/Chest: regular rate, rhythm, edema (trace) Abdomen: normal bowel sounds, non-tender Skin: normal color, warm/dry Extremities: normal inspection Neuro/Psych: alert, normal mood/affect, motor weakness (right hemiplegia. Right leg 1/5 strength at quads, toes.) ICD10 Worksheet Patient Problems: Problems Problem Status Onset CVA (cerebral vascular accident) Acute Thyroid mass Acute thyroid mass Acute
--- NOTE | 2017-08-22 16:38 | PDMN ---
Medical Necessity Medical necessity: Pt meets IP criteria per MD; est los >2 mn for eval/tx of acute CVA w/R-sided hemiplegia & dysarthria; pt critically ill w/risk of worsening morbidity/mortality; admit to ICU for further workup/monitoring, Neuro consult & therapies; comorbid advanced age, COPD, DVT, CKD, diabetes; per H&P & order 08/21/17
[2017-08-22] MEDS: ATORVASTATIN CALCIUM 10 MG TAB PO SCH (17:07)
[2017-08-22] MEDS: TOLTERODINE TARTRATE 2 MG EXT REL CAP PO SCH (19:58)
[2017-08-22] MEDS: INSULIN GLARGINE 100 UNITS/ML SYRINGE SC SCH (21:30)
[2017-08-23] MEDS: LEVOTHYROXINE 150 MCG TAB PO SCH (05:38)
[2017-08-23 07:47] VITALS: BP 187/64
[2017-08-23] MEDS: METOPROLOL TARTRATE 100 MG TAB PO SCH (08:13)
[2017-08-23] MEDS: FAMOTIDINE 20 MG TAB PO SCH (08:13)
--- NOTE | 2017-08-23 08:18 | NEUROPROG ---
Assessment: 25 minute unit time. Patient with ongoing severe stroke deficits from a likely small vessel event. Start aspirin. Needs rehab. Ok to go to floor. Subjective: Pt reports no new complaints today. Just starting to get some right leg movement. Objective: Vital Signs Temp Pulse Resp BP Pulse Ox 36.9 C 64 24 H 187/64 H 94 08/23/17 07:43 08/23/17 07:43 08/23/17 07:43 08/23/17 07:43 08/23/17 07:43 Laboratory Results 08/22/17 04:40 08/22/17 08/23/17 08/24/17 05:59 05:59 05:59 Intake Total 1896 1422 Output Total 750 1150 Balance 1146 272 PT 13.7 SEC (12.0-15.0) 08/21/17 11:38 INR 1.03 (0.83-1.16) 08/21/17 11:38 Lethargic with prominent dysarthria, and she has right hemiplegia but some 1/5 in RLE now. MRI shows stroke in the left internal capsule. No bleed. Allergies/Adverse Reactions: ciprofloxacin [From Cipro] Allergy (Severe, Verified 04/09/15 17:25) codeine Allergy (Severe, Verified 04/09/15 17:25) Hives nitrofurantoin [Nitrofurantoin] Allergy (Verified 04/09/15 17:25) Penicillins Allergy (Verified 04/09/15 17:25) sulfamethoxazole [From Bactrim] Allergy (Verified 04/09/15 17:25) trimethoprim [From Bactrim] Allergy (Verified 04/09/15 17:25)
[2017-08-23] MEDS: INSULIN REGULAR HUMAN 100 UNIT/ML UNIT SC SCH ×2 (08:30→13:00)
[2017-08-23] MEDS: PRESERVISION AREDS2 FORMULA EYE VIT 1 EACH PO SCH (08:31)
[2017-08-23] MEDS ORDERED: ASPIRIN 81 MG CHEWABLE TAB PO SCH (09:00)
--- NOTE | 2017-08-23 11:57 | PDIAF ---
- Diagnosis Code Status: Do Not Resuscitate - Medication Management Discharge Medications: Medications to Continue on Transfer Metoprolol Tartrate [Lopressor 25 mg (*)] 100 mg PO BID 05/27/11 [Last Taken 09/30] Simvastatin [Zocor 10 mg] 20 mg PO DAILY18 05/27/11 [Last Taken 08/20/17] Tolterodine Tartrate [Detrol LA] 4 mg PO HS 05/27/11 [Last Taken 08/07/17] Levothyroxine [Synthroid 125 mcg (*)] 150 mcg PO DAILY@0600 07/15/13 [Last Taken 08/20/17] C/E/Zn/Cu/OM3/DHA/EPA/LUT/ZEAX [Preservision Areds 2 Softgel] 2 each PO DAILY [Last Taken 08/20/17] Insulin Glargine [Lantus 100 UNITS/ML (*)] 5 units SC HS 08/21/17 [Last Taken ] Ranitidine HCl 150 mg PO BID 08/21/17 [Last Taken 08/20/17] sitaGLIPtin PHOSPHATE [Januvia 100 MG (*)] 100 mg PO DAILY 08/21/17 [Last Taken 08/20/17] Acetaminophen [Tylenol 325mg (*)] 650 mg PO Q4HRS PRN tab 08/23/17 [Last Taken Unknown] Aspirin [Aspirin 81mg (*)] 81 mg PO DAILY tab.chew 08/23/17 [Last Taken Unknown ] Insulin Regular Human [HumuLIN R] 0 unit SC ACHS unit 08/23/17 [Last Taken Unknown] Discharge Medications: Refer to the Discharge Home Medication list for PRN reason. - Orders Services needed: Registered Nurse, Certified Ship Propeller Finisher, Physical Therapy, Occupational Therapy Diet Texture: Dysphagia 1 - Pureed, Honey Thick Liquids, Meds Whole in Puree, Meds Crushed in Puree - Follow Up Care Current Providers and Referrals: Patient,NotPresent [Unknown] - As per Instructions
--- NOTE | 2017-08-23 11:59 | PDDCSUM ---
Discharge Summary Discharge Summary: Dates of service 08/21-08/23/17 Consultations: veterinary manager, neurology, IR Procedures: head ct x 2, head/neck cta, echo, brain MRI, tPA Hospital course by problem: 87-year-old female presents with acute CVA Plan: 1. Acute CVA. Initial NIH stroke scale 9, received tPA, lacunar infarct internal capsule on MRI -persistent neurologic symptoms include right-sided hemiplegia, dysarthria-- improving slowly -discharged to IP rehab 2. Chronic kidney disease stage 3. Reviewed outside records, most recent creatinine level 1.8 on 03/16/2017, presented at 1.3 but improved overnight to 1.1 3. Diabetes mellitus with hyperglycemia. Most likely exacerbated with CVA, placed on insulin sliding scale with glucometer checks, continue Lantus 5 at bedtime as well as Januvia in a.m. and will need continued f/u 4. Hypertension. currently controlled, Continue beta-naun, IV hydralazine if SBP greater than 180 5. COPD. Chronic, no indication of acute exacerbation 6. History of DVT. 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 Status post LEAK GANG SUPERVISOR eval, regular with recommendations Code. Do not resuscitate per patient, daughter is MD LOZANO dc to IP rehab f/u with PCP and neurology after discharge > 35 min spent in dc more than half in coordination of care
--- NOTE | 2017-08-23 12:46 | ASMTDCNOTE ---
Case Management Discharge Discharge Order Complete? Answers: Yes Patient to Obtain Answers: Other Notes: [facility] Inpatient Rehab Medications Transportation Arranged Answers: [facility] Transport will Pick (Date 08/23/2017 12:00 AM & Time) Case Management Transport Answers: Yes Notes: [facility] for [facility] Form Complete Faxed Final Orders Answers: Yes Notes: [facility] Inpatient rehab Agency/Facility Transfer Answers: Yes Notes: [facility] Inpatient Rehab Report Printed & Faxed to Receiving Agency Family Notified Answers: Yes Notes: [facility] Discharge Comments Notes: Patient is ready to transfer to [facility] Inpatient Rehab program today. Transfer of Care summaries and D/C summaries allscripted to inpatient rehab. Transport arranged with [facility] for today 08-23-17 at 1:30. [facility] will follow the ambulance to the facility. No further needs. Date Signed: 08/23/2017 12:45 PM Electronically Signed By:Lashell Escobar LCSW
--- NOTE | 2017-08-23 13:08 | ASMTLACE ---
LACE Length of stay for Answers: 2 days current admission Acuity / Level of Answers: Yes Care: Did the patient have an inpatient admission? Comorbidities - select Answers: Diabetes (uncontrolled or all that apply controlled) Other Notes: Stroke # of Emergency department Answers: 1-2 visits in the last 6 months Score: 8 Date Signed: 08/23/2017 01:07 PM Electronically Signed By:Lashell Escobar LCSW
[2017-08-24] MEDS ORDERED: FAMOTIDINE 20 MG TAB PO SCH (09:00)
== END 2017-08-23 13:23 | DRG 62 ==
LOC: EDUNIT# → F2N 13:45
PROVIDERS: ADMIT Internal Medicine; ATTEND Internal Medicine
DX: I63.9 Cerebral infarction, unspecified (principal); G81.91 Hemiplegia, unspecified affecting right dominant side; J44.1 Chronic obstructive pulmonary disease with (acute) exacerbation; R29.709 NIHSS score 9; S31.801A Laceration without foreign body of unspecified buttock, initial encounter; W18.39XA Other fall on same level, initial encounter; E11.65 Type 2 diabetes mellitus with hyperglycemia; R47.1 Dysarthria and anarthria; R47.81 Slurred speech; I12.9 Hypertensive chronic kidney disease with stage 1 through stage 4 chronic kidney disease, or unspecified chronic kidney disease; N18.3 Chronic kidney disease, stage 3 (moderate); C73 Malignant neoplasm of thyroid gland; Z66 Do not resuscitate; Z79.01 Long term (current) use of anticoagulants; Z86.718 Personal history of other venous thrombosis and embolism
CPT/HCPCS: 82435-PO; 82565-PO; 82947-PO; 84132-PO; 84295-PO; 84484-PO; 84520-PO; 85014-PO; 92523-GN; 92526-GN; 92610-GN; 96374; 97110-GP; 97162-GP; 97166-GO; 97530-GO; 97530-GP; G8978-GP-CL; G8979-GP-CK; G8980-GP-CL; G8987-GO-CL; G8988-GO-CK; G8996-GN-CK; G8997-GN-CI; G8999-GN-CL; G9158-GN-CL; G9186-GN-CJ; G9186-GN-CL; J0360; J1815; J2997; Q9967

== ENCOUNTER 2017-08-23 13:45 | Inpatient (IN) | payer OTHER ==
[2017-08-23] MEDS ORDERED: ACETAMINOPHEN 325 MG TAB PO PRN (14:48)
[2017-08-23] MEDS ORDERED: D50W 25 GM/50 ML VIAL IVP PRN (15:39)
--- NOTE | 2017-08-23 16:35 | GHP ---
[f rep st] HISTORY AND PHYSICAL POST ADMISSION PHYSICIAN EVALUATION AND REHABILITATION TREATMENT PLAN DATE OF ADMISSION: 08/23/2017 DATE OF EVALUATION: 08/23/2017. TIME OF EVALUATION: 1500. REFERRING FACILITY: [facility]. Referring physician is Dr. Renee. IMPAIRMENT GROUP: 1.2. DATE OF ONSET: 08/21/2017. CONSULTING PHYSICIANS: She was seen in consultation by Neurology, Dr. Cat , and Pulmonary Critical Care, Dr. Galeana. REHABILITATION DIAGNOSIS: Cerebrovascular accident with dysarthria and right upper and lower extremity weakness. ETIOLOGIC DIAGNOSIS: Right body involvement (left brain). HISTORY OF PRESENT ILLNESS: This patient was brought to the hospital with acute right-sided weakness and dysarthria. She was treated with IV tPA thrombolysis but did not have improvement in her function. MRI of the brain showed a lacunar infarct in the left posterior limb of the internal capsule. Also showed mild to moderate age-related cerebral atrophy. She had very high blood pressures and was treated with p.r.n. hydralazine. Additionally, she was continued on metoprolol. She has a history of chronic renal insufficiency, but creatinine was better than her reported baseline. Baseline was 1.8. Her creatinine on presentation to the hospital was 1.3, and the next day it was 1.1 , with an estimated GFR of 47. She was, otherwise, medically stable, participating in therapies, and appropriate for inpatient rehabilitation. STUDIES AND LABS IN THE HOSPITAL: MRI was as described above. She had head and neck CT angiogram, which were read as normal. There was a right upper lung nodule of 4.8 mm noted. Echocardiogram showed normal global systolic left ventricular function with ejection fraction of 60%. She had grade 1 diastolic dysfunction. She had normal right ventricular function, mildly increased pulmonary artery pressure, mild thickening of the mitral valve leaflets, but no valvular stenosis. There was aortic sclerosis and trivial aortic valve regurgitation. There was mild tricuspid regurgitation. There was trivial to mild pulmonic regurgitation. Right ventricular systolic pressure measured 37 mmHg. EKG showed normal sinus rhythm, and there were no arrhythmias seen on telemonitoring. Regarding laboratory studies, hemoglobin A1c was elevated at 9.8. Liver function tests were overall within normal limits, but for a low albumin of 3. Lipid panel showed low cholesterol at 109, low LDL at 52, and low HDL of 27. Triglycerides were mildly elevated at 150. Coagulation studies revealed normal PT and INR. CBC showed an elevated white blood cell count at 10.24 with no left shift. She did not have anemia. She may have been somewhat dehydrated with an elevated hematocrit of 49.4. PRECAUTIONS: She is a fall risk. She has aspiration precautions. ACTIVE COMORBIDITIES: She has the tier 3 comorbidity of hemiparesis. She has diabetes mellitus with manifestation, specifically renal insufficiency. PAST MEDICAL HISTORY: 1. Diabetes mellitus type 2. 2. Chronic kidney disease stage 3. 3. Hurthle cell thyroid cancer. 4. COPD. 5. Hypertension. 6. 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 7. Dyslipidemia. 8. DVT approximately 2 years ago. 9. Urinary incontinence. PAST SURGICAL HISTORY: She has had a total thyroidectomy in July 2013. She has had tonsillectomy, bunionectomy, and hysterectomy. PRE-HOSPITAL MEDICATIONS: 1. Metoprolol 100 mg p.o. twice daily. 2. Simvastatin 20 mg p.o. daily. 3. Tolterodine 4 mg p.o. q.h.s. 4. Levothyroxine 125 mcg p.o. daily. 5. PreserVision eyedrops. 6. Insulin glargine 5 units subcutaneous q.h.s. 7. Ranitidine 150 mg p.o. b.i.d. 8. Spironolactone 25 mg p.o. daily. 9. Sitagliptin 100 mg p.o. daily. ADMISSION MEDICATIONS: 1. Acetaminophen 650 mg p.o. q.4 hours p.r.n. 2. Aspirin 81 mg p.o. daily. 3. PreserVision 2 tablets p.o. daily. 4. Insulin glargine 5 units subcutaneous q.h.s. 5. Levothyroxine 150 mcg p.o. daily. 6. Metoprolol 100 mg p.o. b.i.d. 7. Ranitidine 150 mg p.o. b.i.d. 8. Simvastatin 20 mg p.o. daily. 9. Sitagliptin 100 mg p.o. daily. 10. Tolterodine 4 mg p.o. q.h.s. ALLERGIES: Listed to ciprofloxacin, codeine, nitrofurantoin, penicillin, sulfamethoxazole, and trimethoprim. PSYCHOSOCIAL HISTORY: She is a nonsmoker and does not use alcohol. She was previously independent in her activities of daily living. She reported that she lives at home alone with assistance from her daughter. The hospital admission H and P reports that she lives with her daughter. FAMILY HISTORY: She has a daughter who had a CVA due to carotid stenosis. REVIEW OF SYSTEMS: She complains of right lower extremity pain, which is chronic since she had her DVT. She feels cold. She denies cough or dyspnea. She denies urinary frequency or dysuria. She is not aware of swallowing difficulties. She denies vision changes. Denies headache. She denies nausea, vomiting, constipation, or diarrhea. She reports weakness or inability to move right upper and lower extremities. She denies sensory loss. Otherwise a 10- point review of systems is negative. PHYSICAL EXAM: VITAL SIGNS: Blood pressure is 155/62, heart rate is 62, respiratory rate is 19, oxygen saturation is 93% on room air, temperature is 36.8 degrees centigrade. Her weight is 64.4 kg, for a body mass index of 24.4. GENERAL: This is a well-nourished, well-developed, elderly woman, appears her chronologic age, dressed in a hospital smock, in bed, cooperative, and in no acute distress. HEENT: Extraocular movements are intact. She has anisocoria, with her left pupil slightly smaller than her right pupil. Pupils are reactive to light. Mucous membranes are moist. Dentition is in good condition. She has a crowded airway, Mallampati class 3. NECK: Supple. HEART : Regular rate and rhythm with a 2/6 systolic murmur at the left sternal border. LUNGS: Clear to auscultation bilaterally. ABDOMEN: Soft, nontender, nondistended with normoactive bowel sounds and no hepatosplenomegaly. EXTREMITIES: There is no cyanosis, clubbing, or edema. Radial pulses are 2+ bilaterally. Dorsalis pedis pulses are trace to 1+ bilaterally. She has right calf tenderness. NEUROLOGIC: She is alert. She is oriented to her location, the month, and the year. She is not oriented to the date of the month. She has a prominent right facial droop. Otherwise, cranial nerves 2-12 are grossly intact. She has flaccid paralysis of the right upper extremity. She has dorsiflexion, plantar flexion, and quadriceps extension against gravity. On the right lower extremity, she has minimal motor strength in the right hamstring and right hip flexor. Sensation is intact to light touch. Strength in the left upper and lower extremity is 5/5 overall. Deep tendon reflexes are globally hypoactive. Plantar reflexes upgoing on the right and downgoing on the left. CURRENT LEVEL OF FUNCTION: Per the pre-admission screen: Regarding grooming, she needed assist. For bathing, she needed assist. Dressing required total assist for the lower extremities. Toileting required assist. Bed mobility required moderate assist. Transfers required 2 person moderate assist. Seated balance required contact guard assist. Standing balance required moderate assist of 2. Endurance was poor. Regarding gait, it was noted that she needed assist. Regarding cognition, she was noted to have insight, judgment, and safety awareness deficits. She was considered a fall risk. She had swallowing issues. She had confusion. On the current exam, there are no significant changes from the preadmission screen. IMPRESSION: This is an 87-year-old woman who suffered a lacunar stroke to the left posterior internal capsule resulting in right-sided hemiparesis and a right facial droop. She has a medical history that includes deep venous thrombosis, and it was unclear whether she should have been taking apixaban. She has hypertension. She has a diagnosis of chronic obstructive pulmonary disease and required oxygen initially during her stay, but not since yesterday morning. She has chronic kidney disease stage 3 and diabetes mellitus. She has hypertension. Recurrent DVT was ruled out with Doppler ultrasound of the legs. Elevated blood pressure was controlled with hydralazine while she was in the hospital, which has since been discontinued. She was found to have poorly controlled diabetes mellitus with hemoglobin A1c of 9.8. She was continued on insulin glargine, sitagliptin, and insulin sliding scale. She was medically stabilized and ready for inpatient rehabilitation. Her goal is to complete a rehabilitation stay and then return home with family support, home health care, and any other services as needed. For a safe discharge, she will need to achieve standby assist to modified independence for mobility, swallowing, cognition, ADLs, and medication management. She will need to have medication education and stroke education for her as well as for her family. She will have therapy with physical therapy, occupational therapy, and speech and language pathology for 60 minutes per day for each discipline on 5-7 days of the week. Her expected duration of stay is 14-17 days. It is anticipated that upon discharge she will continue to benefit from home health services, including speech and language pathology, occupational therapy, physical therapy, as well as an outpatient stroke support group. PLAN: 1. Cerebrovascular accident, lacunar, left internal capsule with right upper and lower extremity weakness. PT and OT to optimize mobility in functional status towards the modified standby assist to modified independent level. 2. Dysarthria and possibly dysphagia to be assessed and treated per Speech and Language Pathology. 3. Hypertension. Continue metoprolol. Will add p.r.n. hydralazine for systolic blood pressure greater than 160. Her last use of hydralazine in the hospital was yesterday morning. 4. Diabetes mellitus. Continue insulin glargine 5 units subcutaneous q.h.s. as well as sitagliptin 100 mg daily. Additionally, will order an insulin lispro sliding scale. 5. Hypothyroidism, status post total thyroidectomy. Continue levothyroxine. 6. Secondary prevention of CVA. Blood pressure control as above. Continue aspirin 81 mg daily. Continue treatment of lipids with pravastatin 20 mg p.o. daily. 7. Urinary incontinence. Continue tolterodine 4 mg p.o. daily. 8. Chronic obstructive pulmonary disease. She has no respiratory distress and is oxygenating well. Will monitor her respiratory function. 9. Chronic kidney disease stage 3. Avoid nephrotoxic medications and encourage to adequate hydration. 10. Pulmonary nodule. Follow up with chest CT in 6-12 months. 11. Prophylaxis. She is at elevated DVT risk with history of DVT and with right hemiparesis. As of tomorrow she will be 3 days status post tPA and out of acute danger for hemorrhagic transformation. Will initiate enoxaparin 40 mg subcutaneous daily. Given her age and concurrent treatment with aspirin, will also treat with pantoprazole 40 mg daily. 12. Followup. Her primary care provider is Dr. Rocio Vargas, her primary business account specialist is Dr. Garcia. /[id number]/MODL and [id number]/[facility]
[2017-08-23] MEDS: INSULIN LISPRO 100 UNIT/ML SC SCH (18:52)
[2017-08-23] MEDS: PRAVASTATIN SODIUM 20 MG TAB PO SCH (19:25)
[2017-08-23] MEDS: FAMOTIDINE 20 MG TAB PO SCH (21:58)
[2017-08-23] MEDS: METOPROLOL TARTRATE 25 MG TAB PO SCH (21:58)
[2017-08-23] MEDS: INSULIN GLARGINE 100 UNITS/ML SYRINGE SC SCH (21:58)
[2017-08-24] MEDS: LEVOTHYROXINE 125 MCG TAB PO SCH (06:13)
[2017-08-24] MEDS: TOLTERODINE TARTRATE 2 MG EXT REL CAP PO SCH (07:42)
[2017-08-24] MEDS: INSULIN LISPRO 100 UNIT/ML SC SCH ×3 (09:58→17:12)
[2017-08-24] MEDS: PRESERVISION AREDS2 FORMULA EYE VIT 1 EACH PO SCH (10:01)
[2017-08-24] MEDS: FAMOTIDINE 20 MG TAB PO SCH (10:01)
[2017-08-24] MEDS: ASPIRIN 81 MG CHEWABLE TAB PO SCH (10:02)
[2017-08-24] MEDS: METOPROLOL TARTRATE 25 MG TAB PO SCH ×2 (10:02→20:54)
[2017-08-24] MEDS: ENOXAPARIN 30 MG/0.3 ML SYR SC SCH (10:03)
[2017-08-24] MEDS: PANTOPRAZOLE SODIUM 40 MG TAB PO SCH (10:03)
--- NOTE | 2017-08-24 12:34 | SOAPPROG ---
SOAP Progress Note Assessment/Plan: Assessment: Cerebrovascular accident, lacunar, left internal capsule with right upper and lower extremity weakness. * PT and OT to optimize mobility in functional status towards the modified standby assist to modified independent level. * Outside of the age range of the FLAME trial. Unclear re risks/benefits of fluoxetine. Dysarthria and dysphagia to be assessed and treated per Speech and Language Pathology. * Encourage hydration, on honey thick liquids. Monitor for signs or symptoms of dehydration Hypertension. Continue metoprolol 100 mg twice daily. * Added p.r.n. hydralazine for systolic blood pressure greater than 160. * Initiate amlodipine 2.5 mg q.day starting 08/25/2017. Diabetes mellitus. Inadequately controlled prior to stroke, with hemoglobin A1c of 9.8 in the hospital. * Continue insulin glargine 5 units subcutaneous q.h.s. as well as sitagliptin 100 mg daily. Additionally, will order an insulin lispro sliding scale. * No concentrated carbohydrate diet. Dietary consult. * Will initiate metformin cautiously at 250 mg twice daily. Insomnia. * Trial of trazodone cautiously at low dose, 25 mg, at HS 08/24/2017. Hypothyroidism, status post total thyroidectomy. Continue levothyroxine. Secondary prevention of CVA. Blood pressure control as above. Continue aspirin 81 mg daily. Continue treatment of lipids with pravastatin 20 mg p.o. daily. Urinary incontinence. Continue tolterodine 4 mg p.o. daily. Chronic obstructive pulmonary disease. She has no respiratory distress and is oxygenating well. Will monitor her respiratory function. Chronic kidney disease stage 3. Avoid nephrotoxic medications and encourage to adequate hydration. Pulmonary nodule. Follow up with chest CT in 6-12 months. Prophylaxis. She is at elevated DVT risk with history of DVT and with right hemiparesis. As of tomorrow she will be 3 days status post tPA and out of acute danger for hemorrhagic transformation. Will initiate enoxaparin 40 mg subcutaneous daily. Given her age and concurrent treatment with aspirin, will also treat with pantoprazole 40 mg daily. Followup. Her primary care provider is Dr. Rocio Vargas, her primary gut cleaner is Dr. Garcia. 08/24/17 14:39 Subjective: Poor sleep last night. Got asleep okay but then after being up to urinate had difficulty getting back to sleep. Denies pain, cough, dyspnea, or difficulty breathing when she lays down. Objective: Vital Signs Temp Pulse Resp BP Pulse Ox 36.5 C 60 16 160/74 H 92 08/24/17 05:51 08/24/17 05:51 08/24/17 05:51 08/24/17 05:51 08/24/17 05:51 08/23/17 08/24/17 08/25/17 05:59 05:59 05:59 Intake Total 320 Balance 320 Physical Exam - Physical Exam General Appearance: WD/WN, alert, no apparent distress Respiratory: normal breath sounds, No crackles, No rhonchi, No wheezing Cardiac/Chest: regular rate, rhythm, edema (Trace right pretibial), No diastolic murmur, No systolic murmur Skin: normal color, warm/dry Neuro/Psych: alert, normal mood/affect, motor weakness (Right upper and lower extremity), other (Observed in physical therapy, arising from seated with assist of 2. ) ICD10 Worksheet Patient Problems: Problems Problem Status Onset CVA (cerebral vascular accident) Acute Thyroid mass Acute thyroid mass Acute
[2017-08-24] MEDS: metFORMIN HCL 500 MG TAB PO SCH (18:31)
[2017-08-24] MEDS: PRAVASTATIN SODIUM 20 MG TAB PO SCH (18:31)
[2017-08-24] MEDS: hydrALAZINE 10 MG TAB PO PRN (20:53)
[2017-08-24] MEDS: INSULIN GLARGINE 100 UNITS/ML SYRINGE SC SCH (20:53)
[2017-08-25] MEDS: LEVOTHYROXINE 125 MCG TAB PO SCH (05:40)
[2017-08-25] MEDS: hydrALAZINE 10 MG TAB PO PRN (05:56)
[2017-08-25] MEDS: metFORMIN HCL 500 MG TAB PO SCH ×2 (09:02→17:08)
[2017-08-25] MEDS: TOLTERODINE TARTRATE 2 MG EXT REL CAP PO SCH (09:03)
[2017-08-25] MEDS: ASPIRIN 81 MG CHEWABLE TAB PO SCH (09:06)
[2017-08-25] MEDS: METOPROLOL TARTRATE 25 MG TAB PO SCH ×2 (09:08→20:23)
[2017-08-25] MEDS: PANTOPRAZOLE SODIUM 40 MG TAB PO SCH (09:11)
[2017-08-25] MEDS: PRESERVISION AREDS2 FORMULA EYE VIT 1 EACH PO SCH (09:15)
[2017-08-25] MEDS: INSULIN LISPRO 100 UNIT/ML SC SCH ×3 (09:16→17:07)
[2017-08-25] MEDS: ENOXAPARIN 30 MG/0.3 ML SYR SC SCH (09:17)
--- NOTE | 2017-08-25 09:27 | PDOREHIP ---
Admission [facility] - Admission - 3 Day Assessment Period Admission Date/Day 1: 08/23/17 Day 2: 08/24/17 Day 3: 08/25/17 - Active Diagnoses Comorbidities and Co-existing Conditions at Admission: 59886. DM (e.g. diabetic retinopathy, nephropathy, and neuropathy) - Skin Conditions Unhealed Pressure Ulcer (1 or more/Stage 1 or >)-Admission: 0. No
--- NOTE | 2017-08-25 09:37 | SOAPPROG ---
SOAP Progress Note Assessment/Plan: 87-year-old woman status post left-sided internal capsule stroke and right- sided hemiparesis 08/21/2017 Today's update: All issues are new to this provider. Continues to be hypertensive however new medications just added by Dr. Green yesterday and today, she received hydralazine x1 as a p.r.n. Dose. Also continue close monitoring of glucose as she continues to be hyperglycemic but without hypoglycemia.. A total of 35 min was spent on the floor in the care of the patient, the majority of which was spent in counseling coordination of care regarding rehab plan formulation and management. She is progressing well in therapies and will likely have an earlier discharge than expected. Please see the handwritten individualized overall plan of care and team conference notes from the same date of service signed by me for details. Cerebrovascular accident, lacunar, left internal capsule with right upper and lower extremity weakness. * PT and OT to optimize mobility in functional status towards the modified standby assist to modified independent level. * Hold off on fluoxetine for neural recovery given polypharmacy. Consider further if depression is an issue as well. Dysarthria and dysphagia to be assessed and treated per Speech and Language Pathology. * Encourage hydration, on honey thick liquids. Monitor for signs or symptoms of dehydration Hypertension. * Continue metoprolol 100 mg twice daily. * p.r.n. hydralazine for systolic blood pressure greater than 160. * Initiated amlodipine 2.5 mg q.day starting 08/25/2017. Diabetes mellitus. Inadequately controlled prior to stroke, with hemoglobin A1c of 9.8 in the hospital. * Continue insulin glargine 5 units subcutaneous q.h.s. as well as sitagliptin 100 mg daily. Lispro sliding scale insulin * No concentrated carbohydrate diet. Dietary consult. * Metformin started at admission at 250 mg twice a day. Insomnia. * Trazodone 25 mg p. O. At bedtime initiated at admission, was helpful. Hypothyroidism, status post total thyroidectomy. * Continue levothyroxine. Secondary prevention of CVA. Blood pressure control as above. * Continue aspirin 81 mg daily. * Continue treatment of lipids with pravastatin 20 mg p.o. daily. Urinary incontinence. * Continue tolterodine 4 mg p.o. daily. Chronic obstructive pulmonary disease. She has no respiratory distress and is oxygenating well. * Will monitor her respiratory function. Chronic kidney disease stage 3. * Avoid nephrotoxic medications and encourage to adequate hydration. Pulmonary nodule. * Follow up with chest CT in 6-12 months. Prophylaxis. She is at elevated DVT risk with history of DVT and with right hemiparesis. * enoxaparin 40 mg subcutaneous daily. * Given her age and concurrent treatment with aspirin, will also treat with pantoprazole 40 mg daily. Followup. Her primary care provider is Dr. Rocio Vargas, her primary supervisor scenic arts is Dr. Garcia. 08/25/17 09:27 08/25/17 11:30 Subjective: Chief complaint: Rehab progress No acute events overnight. Patient denies any new shortness of breath or chest pain, no new numbness, tingling, or weakness. She is not sure she slept better but nursing endorses that she did on the new dose of trazodone. Denies any headache or new vision changes in the setting of elevated blood pressure. Objective: Vital Signs Temp Pulse Resp BP Pulse Ox 36.4 C 56 L 18 193/70 H 96 08/25/17 05:45 08/25/17 09:08 08/25/17 05:45 08/25/17 09:08 08/25/17 05:45 08/24/17 08/25/17 08/26/17 05:59 05:59 05:59 Intake Total 320 530 Output Total 250 Balance 320 280 Physical Exam - Physical Exam General Appearance: alert, no apparent distress EENT: No scleral icterus (R), No scleral icterus (L) Respiratory: No respiratory distress, No accessory muscle use Cardiac/Chest: normal peripheral pulses, regular rate, rhythm, No edema Skin: normal color, warm/dry, No cyanosis Extremities: No pedal edema, No swelling Neuro/Psych: alert, normal mood/affect, motor weakness (Dense right-sided hemiparesis, 0/5 movement in the hand on the right) ICD10 Worksheet Patient Problems: Problems Problem Status Onset CVA (cerebral vascular accident) Acute Thyroid mass Acute thyroid mass Acute
[2017-08-25] MEDS: PRAVASTATIN SODIUM 20 MG TAB PO SCH (17:09)
[2017-08-25] MEDS: INSULIN GLARGINE 100 UNITS/ML SYRINGE SC SCH (20:24)
[2017-08-26] MEDS: LEVOTHYROXINE 125 MCG TAB PO SCH (05:56)
[2017-08-26] MEDS: hydrALAZINE 10 MG TAB PO PRN (06:03)
[2017-08-26] MEDS: ENOXAPARIN 30 MG/0.3 ML SYR SC SCH (07:58)
[2017-08-26] MEDS: TOLTERODINE TARTRATE 2 MG EXT REL CAP PO SCH (07:58)
[2017-08-26] MEDS: METOPROLOL TARTRATE 25 MG TAB PO SCH ×2 (07:58→20:13)
[2017-08-26] MEDS: PANTOPRAZOLE SODIUM 40 MG TAB PO SCH (07:59)
[2017-08-26] MEDS: INSULIN LISPRO 100 UNIT/ML SC SCH ×3 (07:59→17:04)
[2017-08-26] MEDS: PRESERVISION AREDS2 FORMULA EYE VIT 1 EACH PO SCH (07:59)
[2017-08-26] MEDS: ASPIRIN 81 MG CHEWABLE TAB PO SCH (07:59)
[2017-08-26] MEDS: metFORMIN HCL 500 MG TAB PO SCH ×2 (07:59→17:05)
[2017-08-26] MEDS ORDERED: INSULIN GLARGINE 100 UNITS/ML SYRINGE SC SCH (10:22)
--- NOTE | 2017-08-26 13:11 | HOSPPROG ---
Hospitalist Progress Note Assessment/Plan: Assessment: 87-year-old F p/w acute L internal capsule CVA Plan: # CVA. Acute, L internal capsule w/ residual R hemiparesis and dysarthria, s/p tPA -cont PT/OT/HOME HEALTH CAREGIVER w/ dense deficits woman status post left-sided internal capsule stroke and right-sided hemiparesis 08/21/2017 -initiate ASA at appropriate interval s/p tPA (08/21/17) -cont statin therapy # HTN. Chronic, 2/2 CKD and exacerbated by CVA -patient reports she had previously been on diuretic therapy directed by her software validation engineer, Dr. Garcia (currently unable to verify Rx/dose) -goal SBP < 160, receiving PRN hydralazine -cont amlodipine 2.5mg, metoprolol 100 bid, and add diuretic (chlorthalidone 12.5) since she has mild LE edema w/ outpt BMP and f/u Dr. Garcia # DM2. Chronic, A1c 9.8% -cont low dose metformin, discontinue if Cr > 1.5 -cont lantus and uptitrate to 8u HS since [facility] 128 and peak 230 -cont ISS # CKD stage III. Baseline Cr 1.3-1.8, most recent 08/22/17 1.1 -repeat on 08/28 and stop metformin in > 1.5 -f/u as outpt w/ Dr. Garcia # Urinary incontinence. Cont tolterodine # Pulmonary nodule. Follow up with chest CT in 6-12 months. PPx. Lovenox 40 Code. DNR Diet. Diabetic Dispo. ADD uncertain, family requesting that grandson be involved (daughter [email or web address]) w/ care team convos regarding location of care following IPR, requests that he be involved beginning 08/28 Subjective: patient denies pain, has not had BM Objective: Vital Signs Temp Pulse Resp BP Pulse Ox 36.2 C 62 16 133/70 H 95 08/26/17 06:35 08/26/17 09:40 08/26/17 06:35 08/26/17 09:40 08/26/17 06:35 08/25/17 08/26/17 08/27/17 05:59 05:59 05:59 Intake Total 530 608 240 Output Total 250 550 100 Balance 280 58 140 - Physical Exam Constitutional: no apparent distress, not in pain, chronically ill appearing, No uncomfortable Cardiovascular: regular rate and rhythym (distant heart sounds), no murmur, rub , or gallop, edema (1+ bilat LE) Respiratory: no respiratory distress, no rales or rhonchi, clear to auscultation Gastrointestinal: soft, non-tender abdomen, no palpable masses, No normoactive bowel sounds (hypoactive bowel sounds) Neurologic: AAOx3, sensation intact bilaterally, weakness (1/5 motor RUE, 2/5 motor RLE, 5/5 motor LUE/LLE), facial droop (R facial palsy, significant dysarthria) Psychiatric: interacting appropriately, not anxious, flat affect, No agitated ICD10 Worksheet Patient Problems: Problems Problem Status Onset CVA (cerebral vascular accident) Acute Thyroid mass Acute thyroid mass Acute
[2017-08-26] MEDS ORDERED: BISACODYL 10 MG SUPP PR PRN (13:20)
[2017-08-26] MEDS ORDERED: MAGNESIUM HYDROXIDE 30 ML UDCUP PO PRN (13:20)
[2017-08-26] MEDS ORDERED: POLYETHYLENE GLYCOL 3350 17 GM PKT PO PRN (13:20)
[2017-08-26] MEDS: PRAVASTATIN SODIUM 20 MG TAB PO SCH (17:04)
[2017-08-26] MEDS ORDERED: metFORMIN HCL 500 MG TAB PO SCH (18:00)
[2017-08-26] MEDS: SENNOSIDES/DOCUSATE SODIUM TAB PO SCH (20:13)
[2017-08-27] MEDS: LEVOTHYROXINE 125 MCG TAB PO SCH (05:25)
[2017-08-27] MEDS: INSULIN LISPRO 100 UNIT/ML SC SCH ×3 (08:07→17:08)
[2017-08-27] MEDS: SENNOSIDES/DOCUSATE SODIUM TAB PO SCH ×2 (08:07→20:53)
[2017-08-27] MEDS: PRESERVISION AREDS2 FORMULA EYE VIT 1 EACH PO SCH (08:07)
[2017-08-27] MEDS: TOLTERODINE TARTRATE 2 MG EXT REL CAP PO SCH (08:08)
[2017-08-27] MEDS: ASPIRIN 81 MG CHEWABLE TAB PO SCH (08:08)
[2017-08-27] MEDS: ENOXAPARIN 30 MG/0.3 ML SYR SC SCH (08:08)
[2017-08-27] MEDS: CHLORTHALIDONE 25 MG TAB PO SCH (08:08)
[2017-08-27] MEDS: metFORMIN HCL 500 MG TAB PO SCH ×2 (08:08→17:08)
[2017-08-27] MEDS: PANTOPRAZOLE SODIUM 40 MG TAB PO SCH (08:09)
[2017-08-27] MEDS: METOPROLOL TARTRATE 25 MG TAB PO SCH ×2 (08:09→20:53)
[2017-08-27] MEDS: PRAVASTATIN SODIUM 20 MG TAB PO SCH (17:08)
--- NOTE | 2017-08-27 18:31 | HOSPPROG ---
Hospitalist Progress Note Assessment/Plan: Assessment: 87-year-old F p/w acute L internal capsule CVA Plan: # CVA. 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 Chronic, 2/2 CKD and exacerbated by CVA -patient reports she had previously been on diuretic therapy directed by her color coater, Dr. Garcia (currently unable to verify Rx/dose) -goal SBP < 160, did not require PRN hydralazine -cont amlodipine 2.5mg, metoprolol 100 bid, and added diuretic (chlorthalidone 12.5) since she has mild LE edema w/ outpt BMP and f/u Dr. Garcia # DM2. Chronic, A1c 9.8% -cont low dose metformin, discontinue if Cr > 1.5 -cont lantus and uptitrate to 10u HS since FBG 118 and peak 173 -cont ISS # CKD stage III. Baseline Cr 1.3-1.8, most recent 08/22/17 1.1 -repeat on 08/28 and stop metformin if > 1.5 -f/u as outpt w/ Dr. Garcia # Urinary incontinence. Cont tolterodine # Pulmonary nodule. Follow up with chest CT in 6-12 months. PPx. Lovenox 30, consider adjusting to hep SC tid if Cr > 1.5 Code. DNR Diet. Diabetic Dispo. ADD uncertain, family requesting that grandson be involved (daughter ARSH) w/ care team conversations regarding location of care following IPR, requests that he be involved beginning 08/28 Subjective: patient feeling well, she continues to massage RUE, moving bowels Objective: Vital Signs Temp Pulse Resp BP Pulse Ox 36.5 C 74 16 158/79 H 95 08/27/17 05:29 08/27/17 08:09 08/27/17 05:29 08/27/17 08:09 08/27/17 05:29 08/26/17 08/27/17 08/28/17 05:59 05:59 05:59 Intake Total 608 800 600 Output Total 550 400 900 Balance 58 400 -300 - Physical Exam Constitutional: no apparent distress, appears nourished, not in pain, No uncomfortable Cardiovascular: regular rate and rhythym, no murmur, rub, or gallop, edema (1+ bilat LE), No irregularly irregular Respiratory: no respiratory distress, no rales or rhonchi, clear to auscultation Gastrointestinal: normoactive bowel sounds, soft, non-tender abdomen, no palpable masses, No distension Neurologic: AAOx3, sensation intact bilaterally, weakness (RUE/RLE paresis), facial droop (R facial palsy), other (ongoing dysarthria) Psychiatric: interacting appropriately, not anxious, not encephalopathic, thought process linear ICD10 Worksheet Patient Problems: Problems Problem Status Onset CVA (cerebral vascular accident) Acute Thyroid mass Acute thyroid mass Acute
[2017-08-27] MEDS: INSULIN GLARGINE 100 UNITS/ML SYRINGE SC SCH (20:53)
[2017-08-28] MEDS: LEVOTHYROXINE 125 MCG TAB PO SCH (05:45)
[2017-08-28] MEDS ORDERED: hydrALAZINE 25 MG TAB PO PRN (08:15)
[2017-08-28] MEDS: INSULIN LISPRO 100 UNIT/ML SC SCH ×3 (08:57→18:19)
[2017-08-28] MEDS: TOLTERODINE TARTRATE 2 MG EXT REL CAP PO SCH (09:56)
[2017-08-28] MEDS: PRESERVISION AREDS2 FORMULA EYE VIT 1 EACH PO SCH ×3 (09:56→12:13)
[2017-08-28] MEDS: ASPIRIN 81 MG CHEWABLE TAB PO SCH (09:56)
[2017-08-28] MEDS: ENOXAPARIN 30 MG/0.3 ML SYR SC SCH (09:56)
[2017-08-28] MEDS: PANTOPRAZOLE SODIUM 40 MG TAB PO SCH (09:57)
[2017-08-28] MEDS: metFORMIN HCL 500 MG TAB PO SCH (09:57)
[2017-08-28] MEDS: CHLORTHALIDONE 25 MG TAB PO SCH (09:58)
[2017-08-28] MEDS: METOPROLOL TARTRATE 25 MG TAB PO SCH ×2 (10:12→20:26)
[2017-08-28] MEDS: SENNOSIDES/DOCUSATE SODIUM TAB PO SCH (10:19)
[2017-08-28] MEDS ORDERED: SENNOSIDES/DOCUSATE SODIUM TAB PO PRN (11:52)
--- NOTE | 2017-08-28 12:25 | SOAPPROG ---
SOAP Progress Note Assessment/Plan: Assessment: Cerebrovascular accident, lacunar, left internal capsule with right upper and lower extremity weakness. * Initial functional independence measure 34 on 08/25/2017. 2 person assist for transfers. Initiating pre gait activities. Initiates gluteus and quadriceps activity on the right leg when standing. Grooming and hygiene done seated, minimal assist. Moderate assist for upper body dressing and maximal assist for lower body dressing. * Continue PT and OT to optimize mobility in functional status towards the modified standby assist to modified independent level. * Outside of the age range of the FLAME trial. Unclear re risks/benefits of fluoxetine. Dysarthria and dysphagia to be assessed and treated per Speech and Language Pathology. * Encourage hydration, on honey thick liquids. Monitor for signs or symptoms of dehydration F/E/N. * With increased creatinine today, and continuing on honey thick liquids, will initiate IV fluids, normal saline with 20 mEq of KCl, 75 cc an hour. * BMP in a.m. 08/29/2017. Hypertension. Continue metoprolol 100 mg twice daily. * Added p.r.n. hydralazine for systolic blood pressure greater than 160. * Initiated amlodipine 2.5 mg q.day starting 08/25/2017. Increased to 5 mg q.day starting 08/29/2017. * Chlorthalidone started 08/27/2017 at 12.5 mg per day. Discontinued due to exacerbation of renal insufficiency, possibly due to dehydration. Diabetes mellitus. Inadequately controlled prior to stroke, with hemoglobin A1c of 9.8 in the hospital. * Continue insulin glargine 5 units subcutaneous q.h.s. as well as sitagliptin 100 mg daily. Additionally, will order an insulin lispro sliding scale. * No concentrated carbohydrate diet. Dietary consult. * Initiated metformin cautiously at 250 mg twice daily; discontinue 08/28/2017 due to GFR of 33. Insomnia. * Trial of trazodone cautiously at low dose, 25 mg, at HS 08/24/2017. Hypothyroidism, status post total thyroidectomy. Continue levothyroxine. Secondary prevention of CVA. Blood pressure control as above. Continue aspirin 81 mg daily. Continue treatment of lipids with pravastatin 20 mg p.o. daily. Urinary incontinence. Continue tolterodine 4 mg p.o. daily. Chronic obstructive pulmonary disease. She has no respiratory distress and is oxygenating well. Will monitor her respiratory function. Chronic kidney disease stage 3. Avoid nephrotoxic medications and encourage to adequate hydration. Pulmonary nodule. Follow up with chest CT in 6-12 months. Prophylaxis. She is at elevated DVT risk with history of DVT and with right hemiparesis. As of tomorrow she will be 3 days status post tPA and out of acute danger for hemorrhagic transformation. Will initiate enoxaparin 40 mg subcutaneous daily. Given her age and concurrent treatment with aspirin, will also treat with pantoprazole 40 mg daily. Followup. Her primary care provider is Dr. Rocio Vargas, her primary dog food dough mixer is Dr. Garcia. 08/28/17 12:19 Subjective: No complaints. Nurse reports loose stools and suggests changing senna to as needed. Physical therapy reports that she is somewhat limited by left knee pain , where she reported "bone on bone." Objective: Vital Signs Temp Pulse Resp BP Pulse Ox 36.8 C 55 L 16 152/98 H 98 08/28/17 07:55 08/28/17 07:55 08/28/17 07:55 08/28/17 07:55 08/28/17 07:55 Laboratory Results 08/28/17 06:00 08/27/17 08/28/17 08/29/17 05:59 05:59 05:59 Intake Total 800 800 Output Total 400 1200 400 Balance 400 -400 -400 Physical Exam - Physical Exam General Appearance: WD/WN, alert, no apparent distress Respiratory: normal breath sounds, No crackles, No rhonchi, No wheezing Cardiac/Chest: regular rate, rhythm, edema (Trace bilateral lower extremity), diastolic murmur, systolic murmur Skin: normal color, warm/dry Neuro/Psych: alert, normal mood/affect, facial droop (Right), motor weakness ( Right upper extremity flaccid paralysis), speech abnormalities (Dysarthria) ICD10 Worksheet Patient Problems: Problems Problem Status Onset CVA (cerebral vascular accident) Acute Thyroid mass Acute thyroid mass Acute
[2017-08-28] MEDS ORDERED: ALTEPLASE 2 MG VIAL IVP PRN (14:33)
[2017-08-28] MEDS: NS W/ 20 KCl/L 1,000 ML IV SCH (16:48)
[2017-08-28] MEDS: PRAVASTATIN SODIUM 20 MG TAB PO SCH (18:19)
[2017-08-28] MEDS: MELATONIN 3 MG TAB PO SCH (20:25)
[2017-08-28] MEDS: INSULIN GLARGINE 100 UNITS/ML SYRINGE SC SCH (20:26)
[2017-08-29] MEDS: LEVOTHYROXINE 125 MCG TAB PO SCH (06:08)
[2017-08-29] MEDS: TOLTERODINE TARTRATE 2 MG EXT REL CAP PO SCH (07:43)
[2017-08-29] MEDS: INSULIN LISPRO 100 UNIT/ML SC SCH ×3 (07:50→17:47)
[2017-08-29] MEDS: PANTOPRAZOLE SODIUM 40 MG TAB PO SCH (08:30)
[2017-08-29] MEDS: ASPIRIN 81 MG CHEWABLE TAB PO SCH (08:30)
[2017-08-29] MEDS: METOPROLOL TARTRATE 25 MG TAB PO SCH ×2 (08:31→20:28)
[2017-08-29] MEDS: PRESERVISION AREDS2 FORMULA EYE VIT 1 EACH PO SCH (08:33)
[2017-08-29] MEDS: NS W/ 20 KCl/L 1,000 ML IV SCH (09:14)
[2017-08-29] MEDS: ENOXAPARIN 30 MG/0.3 ML SYR SC SCH (09:14)
--- NOTE | 2017-08-29 14:50 | SOAPPROG ---
SOAP Progress Note Assessment/Plan: Assessment: Cerebrovascular accident, lacunar, left internal capsule with right upper and lower extremity weakness. * Initial functional independence measure 34 on 08/25/2017. 2 person assist for transfers. Initiating pre gait activities. Initiates gluteus and quadriceps activity on the right leg when standing. Grooming and hygiene done seated, minimal assist. Moderate assist for upper body dressing and maximal assist for lower body dressing. * Continue PT and OT to optimize mobility in functional status towards the modified standby assist to modified independent level. * Outside of the age range of the FLAME trial. Unclear re risks/benefits of fluoxetine. Dysarthria and dysphagia to be assessed and treated per Speech and Language Pathology. * Encourage hydration, on honey thick liquids. Monitor for signs or symptoms of dehydration F/E/N. * With increased creatinine on 08/28/2017, and continuing on honey thick liquids , initiated IV fluids, normal saline with 20 mEq of KCl, 75 cc an hour. * BMP in a.m. 08/29/2017 with creatinine improved from 1.5-1.4 and BUN at 38. Likely still dehydrated. Continue IV fluids. Hypertension. Continue metoprolol 100 mg twice daily. * Added p.r.n. hydralazine for systolic blood pressure greater than 160. * Initiated amlodipine 2.5 mg q.day starting 08/25/2017. Increased to 5 mg q.day starting 08/29/2017. * Chlorthalidone started 08/27/2017 at 12.5 mg per day. Discontinued due to exacerbation of renal insufficiency, possibly due to dehydration. Diabetes mellitus. Inadequately controlled prior to stroke, with hemoglobin A1c of 9.8 in the hospital. * Continue insulin glargine 5 units subcutaneous q.h.s. as well as sitagliptin 100 mg daily. Additionally, will order an insulin lispro sliding scale. * No concentrated carbohydrate diet. Dietary consult. * Initiated metformin cautiously at 250 mg twice daily; discontinue 08/28/2017 due to GFR of 33. Insomnia. * Using melatonin and HS. Hypothyroidism, status post total thyroidectomy. Continue levothyroxine. Secondary prevention of CVA. Blood pressure control as above. Continue aspirin 81 mg daily. Continue treatment of lipids with pravastatin 20 mg p.o. daily. Urinary incontinence. Continue tolterodine 4 mg p.o. daily. Chronic obstructive pulmonary disease. She has no respiratory distress and is oxygenating well. Will monitor her respiratory function. Chronic kidney disease stage 3. Avoid nephrotoxic medications and encourage to adequate hydration. Pulmonary nodule. Follow up with chest CT in 6-12 months. Prophylaxis. She is at elevated DVT risk with history of DVT and with right hemiparesis. As of tomorrow she will be 3 days status post tPA and out of acute danger for hemorrhagic transformation. Will initiate enoxaparin 40 mg subcutaneous daily. Given her age and concurrent treatment with aspirin, will also treat with pantoprazole 40 mg daily. Followup. Her primary care provider is Dr. Rocio Vargas, her primary broadcast meteorologist is Dr. Garcia. 08/29/17 16:17 Subjective: Complains of difficulty breathing. Also says she has heartburn. No cough or dyspnea. Symptoms are worse when supine. No fevers or chills. Slept well. Objective: Vital Signs Temp Pulse Resp BP Pulse Ox 36.4 C 58 L 16 158/64 H 96 08/29/17 08:00 08/29/17 08:00 08/29/17 08:00 08/29/17 08:00 08/29/17 08:00 Laboratory Results 08/29/17 06:30 08/28/17 08/29/17 08/30/17 05:59 05:59 05:59 Intake Total 800 920 275 Output Total 1200 960 200 Balance -400 -40 75 Physical Exam - Physical Exam General Appearance: WD/WN, alert, no apparent distress Respiratory: normal breath sounds, crackles (Few left base), No rhonchi, No wheezing Cardiac/Chest: regular rate, rhythm, edema (Trace right pretibial), JVD, No diastolic murmur, No systolic murmur Skin: normal color, warm/dry Neuro/Psych: alert, normal mood/affect, oriented x 3, facial droop (Right), motor weakness (Right upper and lower extremities and requires assist to arise to seated from supine), speech abnormalities (Dysarthria) ICD10 Worksheet Patient Problems: Problems Problem Status Onset CVA (cerebral vascular accident) Acute Thyroid mass Acute thyroid mass Acute
[2017-08-29] MEDS: PRAVASTATIN SODIUM 20 MG TAB PO SCH (17:47)
[2017-08-29] MEDS: MELATONIN 3 MG TAB PO SCH (20:28)
[2017-08-29] MEDS: INSULIN GLARGINE 100 UNITS/ML SYRINGE SC SCH (20:29)
[2017-08-30] MEDS: NS W/ 20 KCl/L 1,000 ML IV SCH (01:33)
[2017-08-30] MEDS: LEVOTHYROXINE 125 MCG TAB PO SCH (05:27)
[2017-08-30] MEDS: ACETAMINOPHEN 500 MG TAB PO PRN ×2 (05:27→16:10)
[2017-08-30] MEDS: PANTOPRAZOLE SODIUM 40 MG TAB PO SCH (08:39)
[2017-08-30] MEDS: ASPIRIN 81 MG CHEWABLE TAB PO SCH (08:39)
[2017-08-30] MEDS: PRESERVISION AREDS2 FORMULA EYE VIT 1 EACH PO SCH (08:39)
[2017-08-30] MEDS: METOPROLOL TARTRATE 25 MG TAB PO SCH ×2 (08:40→21:33)
[2017-08-30] MEDS: TOLTERODINE TARTRATE 2 MG EXT REL CAP PO SCH (08:42)
[2017-08-30] MEDS: INSULIN LISPRO 100 UNIT/ML SC SCH ×3 (08:48→17:10)
[2017-08-30] MEDS ORDERED: amLODIPine BESYLATE 5 MG TAB PO ONE (09:17)
[2017-08-30] MEDS: ENOXAPARIN 30 MG/0.3 ML SYR SC SCH (09:28)
--- NOTE | 2017-08-30 12:12 | SOAPPROG ---
SOAP Progress Note Assessment/Plan: Assessment: Cerebrovascular accident, lacunar, left internal capsule with right upper and lower extremity weakness. * Initial functional independence measure 34 on 08/25/2017. 2 person assist for transfers. Initiating pre gait activities. Initiates gluteus and quadriceps activity on the right leg when standing. Grooming and hygiene done seated, minimal assist. Moderate assist for upper body dressing and maximal assist for lower body dressing. * Continue PT and OT to optimize mobility in functional status towards the modified standby assist to modified independent level. * Outside of the age range of the FLAME trial. Unclear re risks/benefits of fluoxetine. Dysarthria and dysphagia to be assessed and treated per Speech and Language Pathology. * Encourage hydration. Advanced to nectar thick liquids. Monitor for signs or symptoms of dehydration F/E/N. * With increased creatinine on 08/28/2017, on honey thick liquids, initiated IV fluids, normal saline with 20 mEq of KCl, 75 cc an hour. * BMP in a.m. 08/29/2017 with creatinine improved from 1.5-1.4 and BUN at 38. * Creatinine 1.3 on 08/30/2017. Discontinue IV fluids. Continue PICC line for blood draws and in case she begins to appear dehydrated again. Repeat BMP 2017. Hypertension. Continue metoprolol 100 mg twice daily. * Added p.r.n. hydralazine for systolic blood pressure greater than 160. * Initiated amlodipine 2.5 mg q.day starting 08/25/2017. Increased to 5 mg q.day starting 08/29/2017; to 10 mg q.day starting 08/30/2017 peer * Chlorthalidone started 08/27/2017 at 12.5 mg per day. Discontinued due to exacerbation of renal insufficiency, possibly due to dehydration. Diabetes mellitus. Inadequately controlled prior to stroke, with hemoglobin A1c of 9.8 in the hospital. * Continue insulin glargine 5 units subcutaneous q.h.s. as well as sitagliptin 100 mg daily. Additionally, will order an insulin lispro sliding scale. * No concentrated carbohydrate diet. Dietary consult. * Initiated metformin cautiously at 250 mg twice daily; discontinue 08/28/2017 due to GFR of 33. GFR improved to 39 on 08/30/2017. Restart metformin at 250 mg twice daily. Insomnia. * Using melatonin and HS. Hypothyroidism, status post total thyroidectomy. Continue levothyroxine. Secondary prevention of CVA. Blood pressure control as above. Continue aspirin 81 mg daily. Continue treatment of lipids with pravastatin 20 mg p.o. daily. Urinary incontinence. Continue tolterodine 4 mg p.o. daily. Chronic obstructive pulmonary disease. She has no respiratory distress and is oxygenating well. Will monitor her respiratory function. Chronic kidney disease stage 3. Avoid nephrotoxic medications and encourage to adequate hydration. Pulmonary nodule. Follow up with chest CT in 6-12 months. Prophylaxis. She is at elevated DVT risk with history of DVT and with right hemiparesis. As of tomorrow she will be 3 days status post tPA and out of acute danger for hemorrhagic transformation. Will initiate enoxaparin 40 mg subcutaneous daily. Given her age and concurrent treatment with aspirin, will also treat with pantoprazole 40 mg daily. Followup. Her primary care provider is Dr. Rocio Vargas, her primary social media content specialist is Dr. Garcia. 08/30/17 12:07 Subjective: Reports sleep was interrupted by frequent urination. Otherwise without complaint. No fevers or chills, no cough or dyspnea, not in pain. Objective: Vital Signs Temp Pulse Resp BP Pulse Ox 36.8 C 64 18 140/74 H 92 08/30/17 06:43 08/30/17 08:40 08/30/17 06:43 08/30/17 06:43 08/30/17 06:43 Laboratory Results 08/30/17 09:20 08/29/17 08/30/17 08/31/17 05:59 05:59 05:59 Intake Total 920 3067 120 Output Total 960 200 Balance -40 2867 120 Physical Exam - Physical Exam General Appearance: WD/WN, alert, no apparent distress Respiratory: normal breath sounds, No crackles, No rhonchi, No wheezing Cardiac/Chest: regular rate, rhythm (Occasional skipped beats), edema (1+ left pretibial.), No diastolic murmur, No systolic murmur Skin: normal color, warm/dry Neuro/Psych: alert, normal mood/affect, facial droop (Right), motor weakness ( Right upper and lower extremity), speech abnormalities (Dysarthric) ICD10 Worksheet Patient Problems: Problems Problem Status Onset CVA (cerebral vascular accident) Acute Thyroid mass Acute thyroid mass Acute
[2017-08-30] MEDS: PRAVASTATIN SODIUM 20 MG TAB PO SCH (17:32)
[2017-08-30] MEDS ORDERED: metFORMIN HCL 500 MG TAB PO SCH (18:00)
[2017-08-30] MEDS: INSULIN GLARGINE 100 UNITS/ML SYRINGE SC SCH (21:33)
[2017-08-30] MEDS: MELATONIN 3 MG TAB PO SCH (21:33)
[2017-08-31] MEDS: ACETAMINOPHEN 500 MG TAB PO PRN (02:35)
[2017-08-31] MEDS: LEVOTHYROXINE 125 MCG TAB PO SCH (05:32)
[2017-08-31] MEDS: INSULIN LISPRO 100 UNIT/ML SC SCH ×3 (08:12→18:43)
[2017-08-31] MEDS: TOLTERODINE TARTRATE 2 MG EXT REL CAP PO SCH (08:15)
[2017-08-31] MEDS: PRESERVISION AREDS2 FORMULA EYE VIT 1 EACH PO SCH (08:17)
[2017-08-31] MEDS: ASPIRIN 81 MG CHEWABLE TAB PO SCH (08:17)
[2017-08-31] MEDS: METOPROLOL TARTRATE 25 MG TAB PO SCH ×2 (08:19→19:43)
[2017-08-31] MEDS: PANTOPRAZOLE SODIUM 40 MG TAB PO SCH (08:21)
[2017-08-31] MEDS: ENOXAPARIN 30 MG/0.3 ML SYR SC SCH (09:15)
--- NOTE | 2017-08-31 13:59 | SOAPPROG ---
SOAP Progress Note Assessment/Plan: Assessment: Cerebrovascular accident, lacunar, left internal capsule with right upper and lower extremity weakness. * Initial functional independence measure 34 on 08/25/2017. 2 person assist for transfers. Initiating pre gait activities. Initiates gluteus and quadriceps activity on the right leg when standing. Grooming and hygiene done seated, minimal assist. Moderate assist for upper body dressing and maximal assist for lower body dressing. * Continue PT and OT to optimize mobility in functional status towards the modified standby assist to modified independent level. * Outside of the age range of the FLAME trial. Unclear re risks/benefits of fluoxetine. Dysarthria and dysphagia to be assessed and treated per Speech and Language Pathology. * Encourage hydration. Advanced to nectar thick liquids 08/30/2017. Monitor for signs or symptoms of dehydration F/E/N. * With increased creatinine on 08/28/2017, on honey thick liquids, initiated IV fluids, normal saline with 20 mEq of KCl, 75 cc an hour. * BMP in a.m. 08/29/2017 with creatinine improved from 1.5-1.4 and BUN at 38. * Creatinine 1.3 on 08/30/2017. Discontinue IV fluids. Continue PICC line for blood draws and in case she begins to appear dehydrated again. Repeat BMP 2017. Hypertension. Continue metoprolol 100 mg twice daily. * Added p.r.n. hydralazine for systolic blood pressure greater than 160. * Initiated amlodipine 2.5 mg q.day starting 08/25/2017. Increased to 5 mg q.day starting 08/29/2017; to 10 mg q.day starting 08/30/2017 peer * Chlorthalidone started 08/27/2017 at 12.5 mg per day. Discontinued due to exacerbation of renal insufficiency, possibly due to dehydration. Diabetes mellitus. Inadequately controlled prior to stroke, with hemoglobin A1c of 9.8 in the hospital. * Continue insulin glargine 10 units subcutaneous q.h.s. as well as sitagliptin 100 mg daily. Additionally, will order an insulin lispro sliding scale. * No concentrated carbohydrate diet. Dietary consult. * Estimated GFR per pharmacy is 30 so metformin is contraindicated. Cramps, R quadriceps. * Not consistent with restless leg syndrome. Does not have increased tone interfering with therapies. Hesitate to add other medications for instance muscle relaxant or gabapentin. Will schedule acetaminophen 1000 mg three times daily starting 08/31/2017 and observe for resolution of symptoms. Insomnia. * Using melatonin and HS. Hypothyroidism, status post total thyroidectomy. Continue levothyroxine. Secondary prevention of CVA. Blood pressure control as above. Continue aspirin 81 mg daily. Continue treatment of lipids with pravastatin 20 mg p.o. daily. Urinary incontinence. Continue tolterodine 4 mg p.o. daily. Chronic obstructive pulmonary disease. She has no respiratory distress and is oxygenating well. Will monitor her respiratory function. Chronic kidney disease stage 3. Avoid nephrotoxic medications and encourage to adequate hydration. Pulmonary nodule. Follow up with chest CT in 6-12 months. Prophylaxis. She is at elevated DVT risk with history of DVT and with right hemiparesis. As of tomorrow she will be 3 days status post tPA and out of acute danger for hemorrhagic transformation. Will initiate enoxaparin 40 mg subcutaneous daily. Given her age and concurrent treatment with aspirin, will also treat with pantoprazole 40 mg daily. Followup. Her primary care provider is Dr. Rocio Vargas, her primary practice manager is Dr. Garcia. 08/31/17 15:22 Subjective: Does not feel thirsty. Reports muscle cramp at night that interfered with sleep. It was in her right quadriceps. May did not involve leg movement. Otherwise without complaints. No fevers or chills, no cough or dyspnea. Objective: Vital Signs Temp Pulse Resp BP Pulse Ox 36.6 C 61 16 141/69 H 94 08/31/17 05:41 08/31/17 05:41 08/31/17 05:41 08/31/17 05:41 08/31/17 05:41 Laboratory Results 08/30/17 09:20 08/30/17 08/31/17 09/01/17 05:59 05:59 05:59 Intake Total 3067 1040 480 Output Total 200 750 Balance 2867 290 480 Physical Exam - Physical Exam General Appearance: WD/WN, alert, no apparent distress Respiratory: normal breath sounds, No crackles, No rhonchi, No wheezing Cardiac/Chest: regular rate, rhythm, No edema, No diastolic murmur, No systolic murmur Skin: normal color, warm/dry Neuro/Psych: alert, normal mood/affect, motor weakness (Right upper and lower extremities. Demonstrates foot dorsiflexion on the right.), other (Mild to moderately increased tone in the right biceps and triceps.) ICD10 Worksheet Patient Problems: Problems Problem Status Onset CVA (cerebral vascular accident) Acute Thyroid mass Acute thyroid mass Acute
[2017-08-31] MEDS: ACETAMINOPHEN 500 MG TAB PO SCH ×2 (16:20→20:58)
[2017-08-31] MEDS: PRAVASTATIN SODIUM 20 MG TAB PO SCH (18:44)
[2017-08-31] MEDS: INSULIN GLARGINE 100 UNITS/ML SYRINGE SC SCH (20:57)
[2017-08-31] MEDS: MELATONIN 3 MG TAB PO SCH (20:57)
[2017-09-01] MEDS: LEVOTHYROXINE 125 MCG TAB PO SCH (05:48)
[2017-09-01] MEDS: INSULIN LISPRO 100 UNIT/ML SC SCH ×3 (07:39→17:05)
[2017-09-01] MEDS: TOLTERODINE TARTRATE 2 MG EXT REL CAP PO SCH (07:59)
[2017-09-01] MEDS: METOPROLOL TARTRATE 25 MG TAB PO SCH ×2 (08:00→22:18)
[2017-09-01] MEDS: ASPIRIN 81 MG CHEWABLE TAB PO SCH (08:01)
[2017-09-01] MEDS: PANTOPRAZOLE SODIUM 40 MG TAB PO SCH (08:01)
[2017-09-01] MEDS: ACETAMINOPHEN 500 MG TAB PO SCH ×3 (08:01→22:19)
[2017-09-01] MEDS: PRESERVISION AREDS2 FORMULA EYE VIT 1 EACH PO SCH (08:02)
[2017-09-01] MEDS: ENOXAPARIN 30 MG/0.3 ML SYR SC SCH (08:02)
[2017-09-01] MEDS ORDERED: NS W/ 20 KCl/L 1,000 ML IV SCH (11:30)
--- NOTE | 2017-09-01 12:17 | SOAPPROG ---
SOAP Progress Note Assessment/Plan: Assessment: Cerebrovascular accident, lacunar, left internal capsule with right upper and lower extremity weakness. * Initial functional independence measure 34 on 08/25/2017, improved to 46 as of 09/01/2017. To assist for transfer. Reduced carry-over, reduced initiation. Left-sided a proxy a as well as right-sided weakness. Needed assistance for her hair with grooming and hygiene and needed cues to initiate. Upper body dressing requires minimal to moderate assist, lower body requires maximal assist she has a motor planning deficit. She requires 2 person assist for toileting and transfer and moderate assist for bathing. * Continue PT and OT to optimize mobility in functional status towards the modified standby assist to modified independent level. * Outside of the age range of the FLAME trial. Unclear re risks/benefits of fluoxetine. Dysarthria and dysphagia to be assessed and treated per Speech and Language Pathology. * Encourage hydration. Advanced to nectar thick liquids 08/30/2017. Monitor for signs or symptoms of dehydration F/E/N. * With increased creatinine on 08/28/2017, on honey thick liquids, initiated IV fluids, normal saline with 20 mEq of KCl, 75 cc an hour. * BMP in a.m. 08/29/2017 with creatinine improved from 1.5-1.4 and BUN at 38. * Creatinine 1.3 on 08/30/2017. Discontinue IV fluids. Continue PICC line for blood draws and in case she begins to appear dehydrated again. BMP 09/01/2017 with creatinine increased 1.5. Will hydrate again IV. Repeat BMP in a.m.. Inanition, with reduced oral. Intake and reduced initiation. * Trial of a low-dose methylphenidate 2.5 mg twice daily before breakfast and lunch, starting 09/01/2017. * Titrate if no adverse effects, and monitor for response regarding appetite and initiation. Hypertension. Continue metoprolol 100 mg twice daily. * Added p.r.n. hydralazine for systolic blood pressure greater than 160. * Initiated amlodipine 2.5 mg q.day starting 08/25/2017. Increased to 5 mg q.day starting 08/29/2017; to 10 mg q.day starting 08/30/2017 peer * Chlorthalidone started 08/27/2017 at 12.5 mg per day. Discontinued due to exacerbation of renal insufficiency, possibly due to dehydration. Diabetes mellitus. Inadequately controlled prior to stroke, with hemoglobin A1c of 9.8 in the hospital. * Continue insulin glargine 10 units subcutaneous q.h.s. as well as sitagliptin 100 mg daily. Additionally, will order an insulin lispro sliding scale. * No concentrated carbohydrate diet. Dietary consult. * Estimated GFR per pharmacy is 30 so metformin is contraindicated. Cramps, R quadriceps. * Not consistent with restless leg syndrome. Does not have increased tone interfering with therapies. * Improved with acetaminophen 1000 mg three times daily starting 08/31/2017. * Add gabapentin 300 mg at HS starting 09/01/2017. Insomnia. * Using melatonin and HS. Hypothyroidism, status post total thyroidectomy. Continue levothyroxine. Secondary prevention of CVA. Blood pressure control as above. Continue aspirin 81 mg daily. Continue treatment of lipids with pravastatin 20 mg p.o. daily. Urinary incontinence. Continue tolterodine 4 mg p.o. daily. Chronic obstructive pulmonary disease. She has no respiratory distress and is oxygenating well. Will monitor her respiratory function. Chronic kidney disease stage 3. Avoid nephrotoxic medications and encourage to adequate hydration. Pulmonary nodule. Follow up with chest CT in 6-12 months. Prophylaxis. She is at elevated DVT risk with history of DVT and with right hemiparesis. As of tomorrow she will be 3 days status post tPA and out of acute danger for hemorrhagic transformation. Will initiate enoxaparin 40 mg subcutaneous daily. Given her age and concurrent treatment with aspirin, will also treat with pantoprazole 40 mg daily. DISPOSITION: Attended staffing, 15 min. Discussed with case management, nursing, dietitian, PT, OT, [employer]. Slow progress and very low functioning. She was living independently in her own home with daughter living in the basement. Very unlikely to be able to discharge home in short term. [facility] or 09/06/2017. Followup. Her primary care provider is Dr. Rocio Vargas, her primary medical records specialist is Dr. Garcia. 09/01/17 12:08 Subjective: Continues to complain of cramps in the right thigh. Also has left knee pain but not as bad. Right thigh cramps were better last night the night before. She reports they are more prominent at night. Otherwise without complaints. Objective: Vital Signs Temp Pulse Resp BP Pulse Ox 36.2 C 61 16 139/67 H 95 09/01/17 06:04 09/01/17 06:04 09/01/17 06:04 09/01/17 06:04 09/01/17 06:04 Laboratory Results 09/01/17 06:00 08/31/17 09/01/17 09/02/17 05:59 05:59 05:59 Intake Total 1040 800 Output Total 750 700 400 Balance 290 100 -400 - Time Spent With Patient Time Spent With Patient: Greater than 35 min floor time today, including more than 50% of time in coordination of care during staffing meeting, and counseling patient. Physical Exam - Physical Exam General Appearance: WD/WN, alert, no apparent distress Respiratory: normal breath sounds, No crackles, No rhonchi, No wheezing Cardiac/Chest: regular rate, rhythm, No edema, No diastolic murmur, No systolic murmur Skin: normal color, warm/dry Neuro/Psych: alert, normal mood/affect, facial droop (Right), motor weakness ( Right upper and lower extremities), speech abnormalities (Dysarthria) ICD10 Worksheet Patient Problems: Problems Problem Status Onset CVA (cerebral vascular accident) Acute Thyroid mass Acute thyroid mass Acute
[2017-09-01] MEDS ORDERED: FAMOTIDINE 20 MG TAB PO PRN (14:57)
[2017-09-01] MEDS: traMADol 50 MG TAB PO PRN ×2 (15:06→15:50)
[2017-09-01] MEDS: PRAVASTATIN SODIUM 20 MG TAB PO SCH (17:05)
[2017-09-01] MEDS: INSULIN GLARGINE 100 UNITS/ML SYRINGE SC SCH (22:19)
[2017-09-01] MEDS: MELATONIN 3 MG TAB PO SCH (22:19)
[2017-09-02] MEDS: traMADol 50 MG TAB PO PRN (00:43)
[2017-09-02] MEDS: LEVOTHYROXINE 150 MCG TAB PO SCH (07:23)
[2017-09-02] MEDS: LEVOTHYROXINE 125 MCG TAB PO SCH (07:24)
[2017-09-02] MEDS: INSULIN LISPRO 100 UNIT/ML SC SCH ×3 (08:00→17:02)
[2017-09-02] MEDS: ENOXAPARIN 30 MG/0.3 ML SYR SC SCH (08:27)
[2017-09-02] MEDS: PANTOPRAZOLE SODIUM 40 MG TAB PO SCH (08:27)
[2017-09-02] MEDS: TOLTERODINE TARTRATE 2 MG EXT REL CAP PO SCH (08:28)
[2017-09-02] MEDS: ACETAMINOPHEN 500 MG TAB PO SCH ×3 (08:28→21:37)
[2017-09-02] MEDS: PRESERVISION AREDS2 FORMULA EYE VIT 1 EACH PO SCH (08:28)
[2017-09-02] MEDS: ASPIRIN 81 MG CHEWABLE TAB PO SCH (08:28)
[2017-09-02] MEDS: METOPROLOL TARTRATE 25 MG TAB PO SCH (08:29)
[2017-09-02] MEDS: LACTULOSE 20 GM/30 ML UDCUP PO PRN (08:29)
--- NOTE | 2017-09-02 12:37 | SOAPPROG ---
SOAP Progress Note Assessment/Plan: Assessment: Cerebrovascular accident, lacunar, left internal capsule with right upper and lower extremity weakness. * Initial functional independence measure 34 on 08/25/2017, improved to 46 as of 09/01/2017. To assist for transfer. Reduced carry-over, reduced initiation. Left-sided a proxy a as well as right-sided weakness. Needed assistance for her hair with grooming and hygiene and needed cues to initiate. Upper body dressing requires minimal to moderate assist, lower body requires maximal assist she has a motor planning deficit. She requires 2 person assist for toileting and transfer and moderate assist for bathing. * Continue PT and OT to optimize mobility in functional status towards the modified standby assist to modified independent level. * Outside of the age range of the FLAME trial. Unclear re risks/benefits of fluoxetine. Dysarthria and dysphagia to be assessed and treated per Speech and Language Pathology. * Encourage hydration. Advanced to nectar thick liquids 08/30/2017. Monitor for signs or symptoms of dehydration F/E/N. * With increased creatinine on 08/28/2017, on honey thick liquids, initiated IV fluids, normal saline with 20 mEq of KCl, 75 cc an hour. * BMP in a.m. 08/29/2017 with creatinine improved from 1.5-1.4 and BUN at 38. * Creatinine 1.3 on 08/30/2017. Discontinue IV fluids. Continue PICC line for blood draws and in case she begins to appear dehydrated again. BMP 09/01/2017 with creatinine increased 1.5. Will hydrate again IV. * CREATININE STABLE, POSSIBLY LITTLE ELEVATED AT 1.5. DOES HAVE EDEMA. WILL HOLD OFF ON MORE FLUID. RECHECK ON MONDAY Inanition, with reduced oral. Intake and reduced initiation. * Trial of a low-dose methylphenidate 2.5 mg twice daily before breakfast and lunch, starting 09/01/2017. * INCREASE TO 5 MG BID Hypertension. Continue metoprolol 100 mg twice daily. * Added p.r.n. hydralazine for systolic blood pressure greater than 160. * Initiated amlodipine 2.5 mg q.day starting 08/25/2017. Increased to 5 mg q.day starting 08/29/2017; to 10 mg q.day starting 08/30/2017 peer * Chlorthalidone started 08/27/2017 at 12.5 mg per day. Discontinued due to exacerbation of renal insufficiency, possibly due to dehydration. Diabetes mellitus. Inadequately controlled prior to stroke, with hemoglobin A1c of 9.8 in the hospital. * Continue insulin glargine 10 units subcutaneous q.h.s. as well as sitagliptin 100 mg daily. Additionally, will order an insulin lispro sliding scale. * No concentrated carbohydrate diet. Dietary consult. * Estimated GFR per pharmacy is 30 so metformin is contraindicated. Cramps, R quadriceps. * Not consistent with restless leg syndrome. Does not have increased tone interfering with therapies. * Improved with acetaminophen 1000 mg three times daily starting 08/31/2017. * Add gabapentin 300 mg at HS starting 09/01/2017. Insomnia. * Using melatonin and HS. Hypothyroidism, status post total thyroidectomy. Continue levothyroxine. Secondary prevention of CVA. Blood pressure control as above. Continue aspirin 81 mg daily. Continue treatment of lipids with pravastatin 20 mg p.o. daily. Urinary incontinence. Continue tolterodine 4 mg p.o. daily. Chronic obstructive pulmonary disease. She has no respiratory distress and is oxygenating well. Will monitor her respiratory function. Chronic kidney disease stage 3. Avoid nephrotoxic medications and encourage to adequate hydration. Pulmonary nodule. Follow up with chest CT in 6-12 months. Prophylaxis. Lovenox 40 mg Plan: 09/02/17 12:35 Subjective: no new complaints. Doesn't feel much different with the ritalin. always has edema on right leg but not so much left leg Objective: Vital Signs Temp Pulse Resp BP Pulse Ox 36.3 C 57 L 15 125/67 H 95 09/02/17 08:00 09/02/17 08:00 09/02/17 08:00 09/02/17 08:00 09/02/17 08:00 Laboratory Results 09/02/17 06:31 09/01/17 09/02/17 09/03/17 05:59 05:59 05:59 Intake Total 800 360 Output Total 700 630 200 Balance 100 -270 -200 Physical Exam - Physical Exam General Appearance: WD/WN, alert, no apparent distress Neck: supple Respiratory: lungs clear, normal breath sounds, decreased breath sounds Cardiac/Chest: regular rate, rhythm, edema (1+) Abdomen: non-tender, soft Skin: warm/dry Neuro/Psych: alert, motor weakness (right sided weakness) ICD10 Worksheet Patient Problems: Problems Problem Status Onset CVA (cerebral vascular accident) Acute Thyroid mass Acute thyroid mass Acute
[2017-09-02] MEDS: PRAVASTATIN SODIUM 20 MG TAB PO SCH (17:01)
[2017-09-02] MEDS: MELATONIN 3 MG TAB PO SCH (21:32)
[2017-09-02] MEDS: METOPROLOL TARTRATE 100 MG TAB PO SCH (21:36)
[2017-09-02] MEDS: INSULIN GLARGINE 100 UNITS/ML SYRINGE SC SCH (21:37)
[2017-09-02] MEDS: SENNOSIDES/DOCUSATE SODIUM TAB PO SCH (21:45)
[2017-09-03] MEDS: LEVOTHYROXINE 150 MCG TAB PO SCH (06:10)
[2017-09-03] MEDS: ENOXAPARIN 30 MG/0.3 ML SYR SC SCH (08:45)
[2017-09-03] MEDS: PRESERVISION AREDS2 FORMULA EYE VIT 1 EACH PO SCH (08:46)
[2017-09-03] MEDS: TOLTERODINE TARTRATE 2 MG EXT REL CAP PO SCH (08:46)
[2017-09-03] MEDS: ACETAMINOPHEN 500 MG TAB PO SCH ×3 (08:46→21:56)
[2017-09-03] MEDS: ASPIRIN 81 MG CHEWABLE TAB PO SCH (08:47)
[2017-09-03] MEDS: PANTOPRAZOLE SODIUM 40 MG TAB PO SCH (08:47)
[2017-09-03] MEDS: SENNOSIDES/DOCUSATE SODIUM TAB PO SCH ×2 (08:47→21:58)
[2017-09-03] MEDS: METOPROLOL TARTRATE 100 MG TAB PO SCH ×2 (08:47→21:57)
[2017-09-03] MEDS: INSULIN LISPRO 100 UNIT/ML SC SCH ×3 (08:53→17:07)
--- NOTE | 2017-09-03 13:07 | SOAPPROG ---
SOAP Progress Note Assessment/Plan: Assessment: Cerebrovascular accident, lacunar, left internal capsule with right upper and lower extremity weakness. * Initial functional independence measure 34 on 08/25/2017, improved to 46 as of 09/01/2017. To assist for transfer. Reduced carry-over, reduced initiation. Left-sided a proxy a as well as right-sided weakness. Needed assistance for her hair with grooming and hygiene and needed cues to initiate. Upper body dressing requires minimal to moderate assist, lower body requires maximal assist she has a motor planning deficit. She requires 2 person assist for toileting and transfer and moderate assist for bathing. * Continue PT and OT to optimize mobility in functional status towards the modified standby assist to modified independent level. * Outside of the age range of the FLAME trial. Unclear re risks/benefits of fluoxetine. Dysarthria and dysphagia to be assessed and treated per Speech and Language Pathology. * Encourage hydration. Advanced to nectar thick liquids 08/30/2017. Monitor for signs or symptoms of dehydration F/E/N. * With increased creatinine on 08/28/2017, on honey thick liquids, initiated IV fluids, normal saline with 20 mEq of KCl, 75 cc an hour. * BMP in a.m. 08/29/2017 with creatinine improved from 1.5-1.4 and BUN at 38. * Creatinine 1.3 on 08/30/2017. Discontinue IV fluids. Continue PICC line for blood draws and in case she begins to appear dehydrated again. BMP 09/01/2017 with creatinine increased 1.5. Will hydrate again IV. * CREATININE STABLE, POSSIBLY LITTLE ELEVATED AT 1.5. DOES HAVE EDEMA. STOP IVF. RECHECK CREATININE IN AM Inanition, with reduced oral. Intake and reduced initiation. * Trial of a low-dose methylphenidate 2.5 mg twice daily before breakfast and lunch, starting 09/01/2017. * INCREASE TO 5 MG BID - FEELING DIZZY - NOT SURE IF THIS IS CAUSING. WILL HAVE HER MONITOR AFTER NOON DOSE - DC IF IT SEEMS TO BE CAUSING DIZZINESS Hypertension. Continue metoprolol 100 mg twice daily. * Added p.r.n. hydralazine for systolic blood pressure greater than 160. * Initiated amlodipine 2.5 mg q.day starting 08/25/2017. Increased to 5 mg q.day starting 08/29/2017; to 10 mg q.day starting 08/30/2017 peer * Chlorthalidone started 08/27/2017 at 12.5 mg per day. Discontinued due to exacerbation of renal insufficiency, possibly due to dehydration. Diabetes mellitus. Inadequately controlled prior to stroke, with hemoglobin A1c of 9.8 in the hospital. * Continue insulin glargine 10 units subcutaneous q.h.s. as well as sitagliptin 100 mg daily. Additionally, will order an insulin lispro sliding scale. * No concentrated carbohydrate diet. Dietary consult. * Estimated GFR per pharmacy is 30 so metformin is contraindicated. Cramps, R quadriceps. * Not consistent with restless leg syndrome. Does not have increased tone interfering with therapies. * Improved with acetaminophen 1000 mg three times daily starting 08/31/2017. * Add gabapentin 300 mg at HS starting 09/01/2017. Insomnia. * Using melatonin and HS. Hypothyroidism, status post total thyroidectomy. Continue levothyroxine. Secondary prevention of CVA. Blood pressure control as above. Continue aspirin 81 mg daily. Continue treatment of lipids with pravastatin 20 mg p.o. daily. Urinary incontinence. Continue tolterodine 4 mg p.o. daily. Chronic obstructive pulmonary disease. She has no respiratory distress and is oxygenating well. Will monitor her respiratory function. Chronic kidney disease stage 3. Avoid nephrotoxic medications and encourage to adequate hydration. Pulmonary nodule. Follow up with chest CT in 6-12 months. Prophylaxis. Lovenox 40 mg Plan: 09/02/17 12:35 09/03/17 13:05 Subjective: feeling more dizzy today. not feeling any difference with ritalin Objective: Vital Signs Temp Pulse Resp BP Pulse Ox 36.4 C 67 14 156/74 H 95 09/03/17 07:00 09/03/17 10:33 09/03/17 07:00 09/03/17 10:33 09/03/17 10:33 Laboratory Results 09/02/17 06:31 09/02/17 09/03/17 09/04/17 05:59 05:59 05:59 Intake Total 360 1565 240 Output Total 630 800 375 Balance -270 765 -135 Physical Exam - Physical Exam General Appearance: WD/WN, alert, no apparent distress Neck: supple Respiratory: lungs clear, normal breath sounds Cardiac/Chest: edema (2+) Abdomen: non-tender, soft Skin: warm/dry Neuro/Psych: alert, aphasia, depressed affect ICD10 Worksheet Patient Problems: Problems Problem Status Onset CVA (cerebral vascular accident) Acute Thyroid mass Acute thyroid mass Acute
[2017-09-03] MEDS: PRAVASTATIN SODIUM 20 MG TAB PO SCH (17:07)
[2017-09-03] MEDS: INSULIN GLARGINE 100 UNITS/ML SYRINGE SC SCH (21:55)
[2017-09-03] MEDS: MELATONIN 3 MG TAB PO SCH (21:59)
[2017-09-04] MEDS: LEVOTHYROXINE 150 MCG TAB PO SCH (05:55)
[2017-09-04] MEDS: ACETAMINOPHEN 500 MG TAB PO SCH ×3 (08:56→21:13)
[2017-09-04] MEDS: SENNOSIDES/DOCUSATE SODIUM TAB PO SCH ×2 (08:59→21:13)
[2017-09-04] MEDS: PRESERVISION AREDS2 FORMULA EYE VIT 1 EACH PO SCH (08:59)
[2017-09-04] MEDS: TOLTERODINE TARTRATE 2 MG EXT REL CAP PO SCH (08:59)
[2017-09-04] MEDS: PANTOPRAZOLE SODIUM 40 MG TAB PO SCH (09:00)
[2017-09-04] MEDS: INSULIN LISPRO 100 UNIT/ML SC SCH ×3 (09:00→17:34)
[2017-09-04] MEDS: ASPIRIN 81 MG CHEWABLE TAB PO SCH (09:01)
[2017-09-04] MEDS: ENOXAPARIN 30 MG/0.3 ML SYR SC SCH (09:01)
[2017-09-04] MEDS: METOPROLOL TARTRATE 100 MG TAB PO SCH ×2 (09:01→21:14)
--- NOTE | 2017-09-04 12:19 | SOAPPROG ---
SOAP Progress Note Assessment/Plan: 87-year-old woman status post left-sided internal capsule stroke and right- sided hemiparesis 08/21/2017 Today's update: Low glucose on labs checked this morning, decreasing the glargine to 6 units at bedtime from 10 units at bedtime. Also noted to have some incidental hypocalcemia, rechecking labs tomorrow as there bit suspicious. Also checking calcium, magnesium, 25 hydroxy vitamin-D. Cerebrovascular accident, lacunar, left internal capsule with right upper and lower extremity weakness. Reduced carry-over, reduced initiation. Left-sided apraxias as well as right-sided weakness. Needed assistance for her hair with grooming and hygiene and needed cues to initiate. * Continue PT and OT to optimize mobility in functional status towards the modified standby assist to modified independent level. * Holding off on fluoxetine given polypharmacy. * Stretching and splinting of the right upper limb is necessary to prevent contracture formation. * Spasticity does not appear to be an issue at this time, continue to monitor. Dysarthria and dysphagia related to stroke to be assessed and treated per Speech and Language Pathology. Advanced to nectar thick liquids 08/30/2017. * Encourage hydration. Monitor for signs or symptoms of dehydration F/E/N. Has received periodic fluids lately with potassium, appears slightly fluid overload on 09/04/2017. Fluids had stopped. Holding off on any Lasix given her fluctuating fluid status. Creatinine is down on 09/04. Noted to have some new hypocalcemia on labs 09/04/2017. * Plan to monitor fluid status today and overnight, no IV fluids or Lasix. * Recheck basic metabolic panel as well as electrolytes Lack of initiation, with reduced oral intake. Related to stroke. Methylphenidate Initially started at 2.5 mg twice daily on 09/01/2017 and increased to 5 mg twice a day. It was unclear if this was causing some dizziness * Continue methylphenidate 5 mg twice daily at morning and at noon, monitoring for side effects including dizziness which she thought might be related. Hypertension. Primary. Hydralazine and amlodipine and been started this admission. Amlodipine 2.5 mg daily was started on 08/25/2017, increased to 5 mg on 08/29, and 10 mg on 08/30. Chlorthalidone was also started on 08/27 at 12.5 mg per day but was discontinued because of an exacerbation of renal insufficiency and possibly dehydration. * Continue metoprolol 100 mg twice daily. * p.r.n. hydralazine for systolic blood pressure greater than 160. * Continue amlodipine at 10 mg per day Diabetes mellitus type 2. Inadequately controlled prior to stroke, with hemoglobin A1c of 9.8 in the hospital. Initially insulin glargine was continued at 10 units at bedtime as well as sitagliptin 100 mg daily. Some hypoglycemia on the 09/04/2017 on morning labs, decreased to 6 units at bedtime. Metformin is contraindicated given the GFR of 30. * Continue insulin glargine 6 units subcutaneous q.h.s. as well as sitagliptin 100 mg daily. * insulin lispro sliding scale. * No concentrated carbohydrate diet. Dietary consult. Cramps, R quadriceps. Does not have increased tone interfering with therapies. Improved with acetaminophen 1000 mg three times daily starting 08/31/2017, added gabapentin 300 mg at HS starting 09/01/2017. * Continue acetaminophen 1000 mg 3 times a day * Continue gabapentin 300 mg p.o. At bedtime Insomnia. * Using melatonin Hypothyroidism, status post total thyroidectomy. * Continue levothyroxine. Secondary prevention of CVA. * Blood pressure control as above. * Continue aspirin 81 mg daily. * Continue treatment of lipids with pravastatin 20 mg p.o. daily. Urinary incontinence. * Continue tolterodine 4 mg p.o. daily. Chronic obstructive pulmonary disease. She has no respiratory distress and is oxygenating well. * Will monitor her respiratory function. Chronic kidney disease stage 3. * Avoid nephrotoxic medications and encourage to adequate hydration. Pulmonary nodule. Incidental finding * Follow up with chest CT in 6-12 months. Prophylaxis. * Lovenox 40 mg Slow progress and very low functioning. She was living independently in her own home with daughter living in the basement. Very unlikely to be able to discharge home in short term. [facility], exact date determined by the team. 08/25/17 09:27 08/25/17 11:30 09/04/17 12:19 09/04/17 12:19 09/04/17 12:21 09/04/17 12:38 Subjective: Chief complaint: Rehab progress No acute events overnight. Patient denies any new shortness of breath or chest pain, no new numbness, tingling, or weakness. She feels that rehab is going well but slow. Not having significant pain. Noted to have a low glucose on her morning labs, no reports of symptoms of hypoglycemia. Recently started on methylphenidate. Fluid status has been challenging, she denies any shortness of breath however. Objective: Vital Signs Temp Pulse Resp BP Pulse Ox 36.9 C 64 15 120/70 93 09/04/17 06:12 09/04/17 09:01 09/04/17 06:12 09/04/17 09:01 09/04/17 06:12 Laboratory Results 09/04/17 06:10 09/03/17 09/04/17 09/05/17 05:59 05:59 05:59 Intake Total 1565 920 360 Output Total 800 775 350 Balance 765 145 10 Physical Exam - Physical Exam General Appearance: WD/WN, alert, no apparent distress EENT: No scleral icterus (R), No scleral icterus (L) Respiratory: lungs clear, normal breath sounds, No respiratory distress, No accessory muscle use Cardiac/Chest: normal peripheral pulses, regular rate, rhythm, No edema Skin: normal color, warm/dry, No cyanosis, No diaphoresis Extremities: non-tender, No pedal edema, No calf tenderness, No swelling Neuro/Psych: alert, normal mood/affect, motor weakness (Right-sided hemiparesis , dense), speech abnormalities (Significant expressive aphasia, speech apraxia) ICD10 Worksheet Patient Problems: Problems Problem Status Onset CVA (cerebral vascular accident) Acute Thyroid mass Acute thyroid mass Acute
[2017-09-04] MEDS: PRAVASTATIN SODIUM 20 MG TAB PO SCH (17:29)
[2017-09-04] MEDS: LACTULOSE 20 GM/30 ML UDCUP PO PRN (18:59)
[2017-09-04] MEDS: MELATONIN 3 MG TAB PO SCH (21:14)
[2017-09-04] MEDS: INSULIN GLARGINE 100 UNITS/ML SYRINGE SC SCH (21:18)
[2017-09-05] MEDS: LEVOTHYROXINE 150 MCG TAB PO SCH (05:21)
[2017-09-05] MEDS: ACETAMINOPHEN 500 MG TAB PO SCH ×3 (08:17→21:07)
[2017-09-05] MEDS ORDERED: BENEFIBER/NUTRISOURCE FIBER PKT 1 EACH PO PRN (08:21)
[2017-09-05] MEDS: ASPIRIN 81 MG CHEWABLE TAB PO SCH (08:21)
[2017-09-05] MEDS: PRESERVISION AREDS2 FORMULA EYE VIT 1 EACH PO SCH (08:21)
[2017-09-05] MEDS: ENOXAPARIN 30 MG/0.3 ML SYR SC SCH (08:22)
[2017-09-05] MEDS: INSULIN LISPRO 100 UNIT/ML SC SCH ×3 (08:22→17:08)
[2017-09-05] MEDS: METOPROLOL TARTRATE 100 MG TAB PO SCH ×2 (08:23→21:07)
[2017-09-05] MEDS: SENNOSIDES/DOCUSATE SODIUM TAB PO SCH ×2 (08:23→21:07)
[2017-09-05] MEDS: PANTOPRAZOLE SODIUM 40 MG TAB PO SCH (08:23)
[2017-09-05] MEDS: TOLTERODINE TARTRATE 2 MG EXT REL CAP PO SCH (08:24)
--- NOTE | 2017-09-05 08:27 | SOAPPROG ---
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 Continues to have bilateral pedal edema. She has a complex picture with chronic kidney disease as well as lower extremity edema. Restarting a lower dose of her home spironolactone at 12.5 mg daily, modified diet to lower her sodium intake. Rechecking chemistry on . Monitor closely. Cerebrovascular accident, lacunar, left internal capsule with right upper and lower extremity weakness. Reduced carry-over, reduced initiation. Left-sided apraxias as well as right-sided weakness. Needed assistance for her hair with grooming and hygiene and needed cues to initiate. * Continue PT and OT to optimize mobility in functional status towards the modified standby assist to modified independent level. * Holding off on fluoxetine given polypharmacy. * Stretching and splinting of the right upper limb is necessary to prevent contracture formation. * Spasticity does not appear to be an issue at this time, continue to monitor. Dysarthria and dysphagia related to stroke to be assessed and treated per Speech and Language Pathology. Advanced to nectar thick liquids 08/30/2017. * Encourage hydration. Monitor for signs or symptoms of dehydration F/E/N. Has received periodic fluids lately with potassium, appears slightly fluid overload on 09/04/2017. Fluids had stopped. Holding off on any Lasix given her fluctuating fluid status. Creatinine is down on 09/04. Noted to have some new hypocalcemia on labs 09/04/2017, but not present on 09/05. Complex picture with elevated creatinine, but within her baseline values, as well as lower extremity edema. * Restarting her home medication of spironolactone at a lower dose, 12.5 mg daily. * Recheck basic metabolic panel on Lack of initiation, with reduced oral intake. Related to stroke. Methylphenidate Initially started at 2.5 mg twice daily on 09/01/2017 and increased to 5 mg twice a day. It was unclear if this was causing some dizziness * Continue methylphenidate 5 mg twice daily at morning and at noon, monitoring for side effects including dizziness which she thought might be related. Hypertension. Primary. Hydralazine and amlodipine and been started this admission. Amlodipine 2.5 mg daily was started on 08/25/2017, increased to 5 mg on 08/29, and 10 mg on 08/30. Chlorthalidone was also started on 08/27 at 12.5 mg per day but was discontinued because of an exacerbation of renal insufficiency and possibly dehydration. * Continue metoprolol 100 mg twice daily. * p.r.n. hydralazine for systolic blood pressure greater than 160. * Continue amlodipine at 10 mg per day Diabetes mellitus type 2. Inadequately controlled prior to stroke, with hemoglobin A1c of 9.8 in the hospital. Initially insulin glargine was continued at 10 units at bedtime as well as sitagliptin 100 mg daily. Some hypoglycemia on the 09/04/2017 on morning labs, decreased to 6 units at bedtime. Metformin is contraindicated given the GFR of 30. * Continue insulin glargine 6 units subcutaneous q.h.s. as well as sitagliptin 100 mg daily. * insulin lispro sliding scale. * No concentrated carbohydrate diet. Dietary consult. Cramps, R quadriceps. Does not have increased tone interfering with therapies. Improved with acetaminophen 1000 mg three times daily starting 08/31/2017, added gabapentin 300 mg at HS starting 09/01/2017. * Continue acetaminophen 1000 mg 3 times a day * Continue gabapentin 300 mg p.o. At bedtime Insomnia. * Using melatonin, helpful Hypothyroidism, status post total thyroidectomy. * Continue levothyroxine. Secondary prevention of CVA. * Blood pressure control as above. * Continue aspirin 81 mg daily. * Continue treatment of lipids with pravastatin 20 mg p.o. daily. Urinary incontinence. * Continue tolterodine 4 mg p.o. daily. Chronic obstructive pulmonary disease. She has no respiratory distress and is oxygenating well. * Will monitor her respiratory function. Chronic kidney disease stage 3. * Avoid nephrotoxic medications and encourage to adequate hydration. Pulmonary nodule. Incidental finding * Follow up with chest CT in 6-12 months. Prophylaxis. * Lovenox 40 mg Slow progress and very low functioning. She was living independently in her own home with daughter living in the basement. Very unlikely to be able to discharge home in short term. Plan discharge to [facility] facility, exact date determined by the team. 08/25/17 09:27 08/25/17 11:30 09/04/17 12:19 09/04/17 12:19 09/04/17 12:21 09/04/17 12:38 09/05/17 08:23 09/05/17 09:48 Subjective: Chief complaint: Fluids and electrolytes No acute events overnight. Patient denies any new shortness of breath or chest pain, no new numbness, tingling, or weakness. Glucose 118-222 over the past 24 hr, no hypoglycemia. She endorses that therapy is going well and she is sleeping well. Objective: Vital Signs Temp Pulse Resp BP Pulse Ox 36.9 C 62 17 136/59 H 95 09/04/17 18:40 09/04/17 21:14 09/04/17 18:40 09/04/17 21:14 09/04/17 18:40 09/04/17 09/05/17 09/06/17 05:59 05:59 05:59 Intake Total 920 960 Output Total 775 950 Balance 145 10 Physical Exam - Physical Exam General Appearance: WD/WN, alert, no apparent distress EENT: No scleral icterus (R), No scleral icterus (L) Respiratory: No respiratory distress, No accessory muscle use Cardiac/Chest: normal peripheral pulses, regular rate, rhythm, edema (Bilateral lower extremity edema, 2+) Skin: normal color, warm/dry, No cyanosis, No diaphoresis Extremities: No non-tender Neuro/Psych: alert, normal mood/affect, motor weakness (Dense right hemiplegia) , speech abnormalities (Aphasia) ICD10 Worksheet Patient Problems: Problems Problem Status Onset CVA (cerebral vascular accident) Acute Thyroid mass Acute thyroid mass Acute
[2017-09-05] MEDS ORDERED: POLYETHYLENE GLYCOL 3350 17 GM PKT PO SCH (09:00)
[2017-09-05] MEDS: SPIRONOLACTONE 25 MG TAB PO SCH (12:15)
[2017-09-05] MEDS: PRAVASTATIN SODIUM 20 MG TAB PO SCH (16:33)
[2017-09-05] MEDS: MELATONIN 3 MG TAB PO SCH (21:07)
[2017-09-05] MEDS: RANITIDINE 150MG PO SCH (21:07)
[2017-09-05] MEDS: INSULIN GLARGINE 100 UNITS/ML SYRINGE SC SCH (21:56)
[2017-09-06] MEDS: LEVOTHYROXINE 150 MCG TAB PO SCH (05:44)
[2017-09-06] MEDS: INSULIN LISPRO 100 UNIT/ML SC SCH ×4 (08:39→17:38)
[2017-09-06] MEDS: ENOXAPARIN 30 MG/0.3 ML SYR SC SCH (09:27)
[2017-09-06] MEDS: PRESERVISION AREDS2 FORMULA EYE VIT 1 EACH PO SCH (09:27)
[2017-09-06] MEDS: TOLTERODINE TARTRATE 2 MG EXT REL CAP PO SCH (09:27)
[2017-09-06] MEDS: SENNOSIDES/DOCUSATE SODIUM TAB PO SCH ×2 (09:28→21:02)
[2017-09-06] MEDS: ASPIRIN 81 MG CHEWABLE TAB PO SCH (09:28)
[2017-09-06] MEDS: ACETAMINOPHEN 500 MG TAB PO SCH ×3 (09:29→21:02)
[2017-09-06] MEDS: SPIRONOLACTONE 25 MG TAB PO SCH (09:29)
[2017-09-06] MEDS: METOPROLOL TARTRATE 100 MG TAB PO SCH ×2 (09:35→21:04)
[2017-09-06] MEDS: PANTOPRAZOLE SODIUM 40 MG TAB PO SCH (09:36)
[2017-09-06] MEDS: RANITIDINE 150MG PO SCH ×2 (09:40→21:11)
--- NOTE | 2017-09-06 12:39 | SOAPPROG ---
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 Also adding insulin lispro 2 units before meals along with a low-dose sliding scale. Patient does not recall history of her urinary incontinence, continue tolterodine for now, still having some incontinence. Checking postvoid residuals. Blood pressure within reasonable range. Continue to monitor, continue antihypertensives. Still has lower extremity edema, continue low-dose spironolactone and rechecking labs on . Cerebrovascular accident, lacunar, left internal capsule with right upper and lower extremity weakness. Reduced carry-over, reduced initiation. Left-sided apraxias as well as right-sided weakness. Needed assistance for her hair with grooming and hygiene and needed cues to initiate. * Continue PT and OT to optimize mobility in functional status towards the modified standby assist to modified independent level. * Holding off on fluoxetine given polypharmacy. * Stretching and splinting of the right upper limb is necessary to prevent contracture formation. * Spasticity does not appear to be an issue at this time, continue to monitor. Dysarthria and dysphagia related to stroke to be assessed and treated per Speech and Language Pathology. Advanced to nectar thick liquids 08/30/2017. * Encourage hydration. Monitor for signs or symptoms of dehydration F/E/N. Has received periodic fluids lately with potassium, appears slightly fluid overload on 09/04/2017. Fluids had stopped. Holding off on any Lasix given her fluctuating fluid status. Creatinine is down on 09/04. Noted to have some new hypocalcemia on labs 09/04/2017, but not present on 09/05. Complex picture with elevated creatinine, but within her baseline values, as well as lower extremity edema. * Restarting her home medication of spironolactone at a lower dose, 12.5 mg daily. * Recheck basic metabolic panel on Lack of initiation, with reduced oral intake. Related to stroke. Methylphenidate Initially started at 2.5 mg twice daily on 09/01/2017 and increased to 5 mg twice a day. It was unclear if this was causing some dizziness * Continue methylphenidate 5 mg twice daily at morning and at noon, monitoring for side effects including dizziness which she thought might be related. Hypertension. Primary. Hydralazine and amlodipine and been started this admission. Amlodipine 2.5 mg daily was started on 08/25/2017, increased to 5 mg on 08/29, and 10 mg on 08/30. Chlorthalidone was also started on 08/27 at 12.5 mg per day but was discontinued because of an exacerbation of renal insufficiency and possibly dehydration. * Continue metoprolol 100 mg twice daily. * p.r.n. hydralazine for systolic blood pressure greater than 160. * Continue amlodipine at 10 mg per day Diabetes mellitus type 2. Inadequately controlled prior to stroke, with hemoglobin A1c of 9.8 in the hospital. Initially insulin glargine was continued at 10 units at bedtime as well as sitagliptin 100 mg daily. Some hypoglycemia on the 09/04/2017 on morning labs, decreased to 6 units at bedtime. Metformin is contraindicated given the GFR of 30. * Continue insulin glargine 6 units subcutaneous q.h.s. * sitagliptin 100 mg daily. * insulin lispro sliding scale. * No concentrated carbohydrate diet. Dietary consult. Cramps, R quadriceps. Does not have increased tone interfering with therapies. Improved with acetaminophen 1000 mg three times daily starting 08/31/2017, added gabapentin 300 mg at HS starting 09/01/2017. * Continue acetaminophen 1000 mg 3 times a day * Continue gabapentin 300 mg p.o. At bedtime Insomnia. * Using melatonin, helpful Hypothyroidism, status post total thyroidectomy. * Continue levothyroxine. Secondary prevention of CVA. * Blood pressure control as above. * Continue aspirin 81 mg daily. * Continue treatment of lipids with pravastatin 20 mg p.o. daily. Urinary incontinence. * Continue tolterodine 4 mg p.o. daily. Chronic obstructive pulmonary disease. She has no respiratory distress and is oxygenating well. * Will monitor her respiratory function. Chronic kidney disease stage 3. * Avoid nephrotoxic medications and encourage to adequate hydration. Pulmonary nodule. Incidental finding * Follow up with chest CT in 6-12 months. Prophylaxis. * Lovenox 40 mg Slow progress and very low functioning. She was living independently in her own home with daughter living in the basement. Very unlikely to be able to discharge home in short term. Plan discharge to senior living facility, exact date determined by the team. 08/25/17 09:27 08/25/17 11:30 09/04/17 12:19 09/04/17 12:19 09/04/17 12:21 09/04/17 12:38 09/05/17 08:23 09/05/17 09:48 09/06/17 12:35 Subjective: Chief complaint: Rehab progress No acute events overnight. Patient denies any new shortness of breath or chest pain, no new numbness, tingling, or weakness. She denies any symptoms of hypoglycemia. She notes that she is not sure if she has been on tolterodine long-term or fit has been helpful for her urinary incontinence. She generally defers questions about her medical history. No acute concerns today. Objective: Vital Signs Temp Pulse Resp BP Pulse Ox 36.4 C 63 16 122/47 H 91 L 09/06/17 10:31 09/06/17 10:31 09/06/17 10:31 09/06/17 10:31 09/06/17 10:31 Laboratory Results 09/05/17 06:00 09/05/17 09/06/17 09/07/17 05:59 05:59 05:59 Intake Total 960 990 Output Total 950 600 Balance 10 390 Physical Exam - Physical Exam General Appearance: WD/WN, alert, no apparent distress EENT: No scleral icterus (R), No scleral icterus (L) Respiratory: No respiratory distress, No accessory muscle use Cardiac/Chest: normal peripheral pulses, regular rate, rhythm, edema (Bilateral 2+ lower extremity) Skin: normal color, warm/dry, No cyanosis, No diaphoresis, No rash Extremities: No non-tender (Some lower limb tenderness because of edema) Neuro/Psych: alert, normal mood/affect, motor weakness (Dense hemiparesis), speech abnormalities (Slurred speech as well as aphasia) ICD10 Worksheet Patient Problems: Problems Problem Status Onset CVA (cerebral vascular accident) Acute Thyroid mass Acute thyroid mass Acute
[2017-09-06] MEDS: PRAVASTATIN SODIUM 20 MG TAB PO SCH (17:34)
--- NOTE | 2017-09-06 18:34 | PDOREHIP ---
Admission [facility] - Admission - 3 Day Assessment Period Admission Date/Day 1: 08/23/17 Day 2: 08/24/17 Day 3: 08/25/17 Discharge [facility] - Discharge - 3 Day Assessment Period 2 Days Prior to Anticipated Discharge Date: 09/06/17 1 Day Prior to Anticipated Discharge Date: 09/07/17 Anticipated Discharge Date: 09/08/17 - Discharge Skin Conditions Unhealed Pressure Ulcer (1 or more/Stage 1 or >)-Discharge: 0. No
--- NOTE | 2017-09-06 19:37 | PDDCSUM ---
Discharge Summary Discharge Summary: Name: Aubree Hansen Admission date: 08/23/2017 Discharge date: 09/07/2017, anticipated Discharging physician: Ac Tijerina MD Admitting diagnosis: 1.2, stroke with right body involvement, left brain Discharge diagnosis: Same Comorbid diagnoses: Dysarthria, dysphagia, impairments in mobility, self-care, and cognition, hyper and hypovolemia, lack of initiation, hypertension, diabetes mellitus type 2, insomnia, hypothyroidism, urinary incontinence, chronic obstructive pulmonary disease, chronic kidney disease stage 3, incidental pulmonary nodule Consultations: physical therapy, occupational therapy, speech language pathology , social work, dietary Procedures: PICC insertion 08/28/2017 Reason for admission: Please see the full history and physical by Dr. Rangel Green on 08/23/2017 for full details. Briefly, the patient had acute right- sided weakness and dysarthria on 08/21/2017 and presented to acute care, treated with IV tPA thrombolysis without improvement. MRI indicated a lacunar infarct of the left posterior limb of the internal capsule and age-related cerebral atrophy. Additional studies included a head and neck CT angiogram which was normal. Echocardiogram with left ventricular systolic function at 60% . Grade 1 diastolic dysfunction. Hemoglobin A1c was 9.8. She had impairments in mobility, self-care, cognition, dysphagia and was admitted to inpatient rehabilitation for further care with the goal to discharge home with home health services and outpatient therapy. Rehabilitation course: She had a challenging rehabilitation course was slow progress in overall low functioning. At discharge, she is unable to live independently and requiring assistance from caregivers for ADLs, mobility. Her care needs were too great for caregivers at home and the decision was made to transfer to [facility] facility. Regarding her various problems, for lack of initiation she was started on methadone date in the morning and at noon and was tolerating this without significant side effects. It seemed to make some difference to her. She was not given fluoxetine for neural recovery because of concerns of polypharmacy. She was doing stretching and splinting of the right upper limb for contracture prevention and was noted by therapist to have some spasticity in the right upper limb, doing stretching, but considering some pharmacological intervention, likely baclofen, but this was not started before discharge. She had dysphagia and advanced her diet but still discharged on a modified diet with nectar thick liquids. For period of time she had poor oral intake was receiving IV fluids, she then had some fluid retention in her legs, elevating legs for symptom management. Home spironolactone was restarted at half her regular dose, 12.5 mg daily. Goal is to escalate to 25 mg daily, her home dose, as tolerated by her renal function. Labs showed an incidental hypocalcemia that resolved spontaneously, or was a lab error. Creatinine was variable but within her baseline that is 1.8. Her diabetes was poorly controlled before her stroke, she continued on insulin glargine at 6 units subcutaneous at bedtime as well as sliding scale insulin and sitagliptin 100 mg daily. Metformin was contraindicated with a GFR of 30. Hypertension was controlled with metoprolol twice a day with p.r.n. Hydralazine rarely needed for blood pressure greater than 160 and amlodipine at 10 mg per day. She continued levothyroxine for hypothyroidism. For secondary prevention of stroke she had blood pressure control, aspirin, and statin. She had urinary incontinence at baseline and was continued on tolterodine 4 mg daily she did not have any symptoms from her COPD. We avoided nephrotoxic medications for her chronic kidney disease. [facility] Condition: Requiring assistance with ADLs and mobility, unable to live independently. Please see the individual therapy discharge summaries for full functional review Medications at discharge: Alteplase as needed for PICC line clearance Amlodipine 10 mg orally daily Dextrose as needed IV push Enoxaparin 30 mg subcutaneous daily Benefiber twice daily as needed for constipation Hydralazine 12.5 mg orally 4 times daily as needed for systolic blood pressure greater than 160 Insulin glargine 6 units subcutaneous at bedtime Insulin lispro 2 units subcutaneous 3 times a day with meals Insulin lispro sliding scale insulin Levothyroxine 150 mcg daily Melatonin 3 mg orally at bedtime Methylphenidate 5 mg orally at 8:00 a.m. And noon Metoprolol 100 mg orally twice daily Pantoprazole 40 mg orally daily Senna 1-2 tabs orally twice daily Spironolactone 12.5 mg orally daily, lower than her home dose but goal to escalated as tolerated Tramadol 25-50 mg orally every 4 hr as needed for pain Simvastatin 20 mg orally daily at 1800 Tolterodine 4 mg orally at bedtime Preservation soft gels 2 orally daily As sitagliptin 100 mg orally daily Ranitidine 150 mg orally twice daily Acetaminophen 650 mg orally q.4 hours as needed for pain Aspirin 81 mg orally daily Pending studies: Labs to be drawn the morning of discharge for renal function and electrolytes Issues to be addressed at follow-up: She had an incidental pulmonary nodule found on imaging, she needs a follow-up chest CT in 6-12 months is the recommendation. Follow up: She will need follow up with PCP, as noted above she had an incidental pulmonary nodule finding on imaging and will need to follow-up chest CT in 6-12 months. She will also need follow up with the heel splitter, Dr. Garcia.
[2017-09-06] MEDS: MELATONIN 3 MG TAB PO SCH (21:03)
[2017-09-06] MEDS: INSULIN GLARGINE 100 UNITS/ML SYRINGE SC SCH (21:03)
[2017-09-07] MEDS: LEVOTHYROXINE 150 MCG TAB PO SCH (06:07)
[2017-09-07] MEDS: ENOXAPARIN 30 MG/0.3 ML SYR SC SCH (09:15)
[2017-09-07] MEDS: ACETAMINOPHEN 500 MG TAB PO SCH (09:15)
[2017-09-07] MEDS: METOPROLOL TARTRATE 100 MG TAB PO SCH (09:15)
[2017-09-07] MEDS: TOLTERODINE TARTRATE 2 MG EXT REL CAP PO SCH (09:16)
[2017-09-07] MEDS: INSULIN LISPRO 100 UNIT/ML SC SCH ×4 (09:16→13:01)
[2017-09-07] MEDS: ASPIRIN 81 MG CHEWABLE TAB PO SCH (09:17)
[2017-09-07] MEDS: SENNOSIDES/DOCUSATE SODIUM TAB PO SCH (09:17)
[2017-09-07] MEDS: PRESERVISION AREDS2 FORMULA EYE VIT 1 EACH PO SCH (09:17)
[2017-09-07] MEDS: PANTOPRAZOLE SODIUM 40 MG TAB PO SCH (09:17)
[2017-09-07] MEDS: SPIRONOLACTONE 25 MG TAB PO SCH (09:17)
[2017-09-07] MEDS: RANITIDINE 150MG PO SCH (09:18)
[2017-09-07 09:31] VITALS: BP 138/84
[2017-09-07] MEDS ORDERED: SPIRONOLACTONE 25 MG TAB PO SCH (12:34)
[2017-09-07] MEDS ORDERED: SPIRONOLACTONE 25 MG TAB PO ONE (12:35)
--- NOTE | 2017-09-07 14:26 | SOAPPROG ---
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 Increasing her spironolactone to home dose of 25 mg p.o. Daily. Gave her 12.5 mg today. Discharging to halfway facility, please see discharge summary from yesterday with update. A total of 40 min was spent on the floor in the care of the patient today, the majority of which was spent in counseling coordination of care regarding discharge planning and coordination of changes. Cerebrovascular accident, lacunar, left internal capsule with right upper and lower extremity weakness. Reduced carry-over, reduced initiation. Left-sided apraxias as well as right-sided weakness. Needed assistance for her hair with grooming and hygiene and needed cues to initiate. * Continue PT and OT to optimize mobility in functional status towards the modified standby assist to modified independent level. * Holding off on fluoxetine given polypharmacy. * Stretching and splinting of the right upper limb is necessary to prevent contracture formation. * Spasticity does not appear to be an issue at this time, continue to monitor. Dysarthria and dysphagia related to stroke to be assessed and treated per Speech and Language Pathology. Advanced to nectar thick liquids 08/30/2017. * Encourage hydration. Monitor for signs or symptoms of dehydration F/E/N. Has received periodic fluids lately with potassium, appears slightly fluid overload on 09/04/2017. Fluids had stopped. Holding off on any Lasix given her fluctuating fluid status. Creatinine is down on 09/04. Noted to have some new hypocalcemia on labs 09/04/2017, but not present on 09/05. Complex picture with elevated creatinine, but within her baseline values, as well as lower extremity edema. * Increased spironolactone to 25 mg daily with 12.5 mg additional dose given today. * Check metabolic panel at halfway facility Lack of initiation, with reduced oral intake. Related to stroke. Methylphenidate Initially started at 2.5 mg twice daily on 09/01/2017 and increased to 5 mg twice a day. It was unclear if this was causing some dizziness * Continue methylphenidate 5 mg twice daily at morning and at noon, monitoring for side effects including dizziness which she thought might be related. Hypertension. Primary. Hydralazine and amlodipine and been started this admission. Amlodipine 2.5 mg daily was started on 08/25/2017, increased to 5 mg on 08/29, and 10 mg on 08/30. Chlorthalidone was also started on 08/27 at 12.5 mg per day but was discontinued because of an exacerbation of renal insufficiency and possibly dehydration. * Continue metoprolol 100 mg twice daily. * p.r.n. hydralazine for systolic blood pressure greater than 160. * Continue amlodipine at 10 mg per day Diabetes mellitus type 2. Inadequately controlled prior to stroke, with hemoglobin A1c of 9.8 in the hospital. Initially insulin glargine was continued at 10 units at bedtime as well as sitagliptin 100 mg daily. Some hypoglycemia on the 09/04/2017 on morning labs, decreased to 6 units at bedtime. Metformin is contraindicated given the GFR of 30. * Continue insulin glargine 6 units subcutaneous q.h.s. * sitagliptin 100 mg daily. * insulin lispro sliding scale. * No concentrated carbohydrate diet. Dietary consult. Cramps, R quadriceps. Does not have increased tone interfering with therapies. Improved with acetaminophen 1000 mg three times daily starting 08/31/2017, added gabapentin 300 mg at HS starting 09/01/2017. * Continue acetaminophen 1000 mg 3 times a day * Continue gabapentin 300 mg p.o. At bedtime Insomnia. * Using melatonin, helpful Hypothyroidism, status post total thyroidectomy. * Continue levothyroxine. Secondary prevention of CVA. * Blood pressure control as above. * Continue aspirin 81 mg daily. * Continue treatment of lipids with pravastatin 20 mg p.o. daily. Urinary incontinence. * Continue tolterodine 4 mg p.o. daily. Chronic obstructive pulmonary disease. She has no respiratory distress and is oxygenating well. * Will monitor her respiratory function. Chronic kidney disease stage 3. * Avoid nephrotoxic medications and encourage to adequate hydration. Pulmonary nodule. Incidental finding * Follow up with chest CT in 6-12 months. Prophylaxis. * Lovenox 40 mg Slow progress and very low functioning. She was living independently in her own home with daughter living in the basement. Very unlikely to be able to discharge home in short term. Discharging to halfway facility today 08/25/17 09:27 08/25/17 11:30 09/04/17 12:19 09/04/17 12:19 09/04/17 12:21 09/04/17 12:38 09/05/17 08:23 09/05/17 09:48 09/06/17 12:35 09/07/17 14:22 09/07/17 14:24 Subjective: Chief complaint: Short breath No acute events overnight. Patient denies any associated chest pain, notes that shortness of breath has been since she got up, mild, just feels like she can get a full breath of air. Oxygen saturations are a normal limits, improved with deep breathing. She feels that she has had this in the past but does not recall the circumstances. No new numbness, tingling, or weakness. Objective: Vital Signs Temp Pulse Resp BP Pulse Ox 36.5 C 66 16 138/84 H 96 09/07/17 06:05 09/07/17 09:15 09/07/17 06:05 09/07/17 09:17 09/07/17 06:05 Laboratory Results 09/07/17 06:10 09/06/17 09/07/17 09/08/17 05:59 05:59 05:59 Intake Total 990 490 480 Output Total 600 101 200 Balance 390 389 280 Physical Exam - Physical Exam General Appearance: WD/WN, alert, no apparent distress EENT: No scleral icterus (R), No scleral icterus (L) Respiratory: chest non-tender, lungs clear, normal breath sounds, No respiratory distress, No accessory muscle use, No decreased breath sounds, No rales, No rhonchi, No wheezing, No prolonged expiration, No prolonged inspiration, No retractions, No pain on movement Cardiac/Chest: normal peripheral pulses, regular rate, rhythm, No edema, No diastolic murmur, No systolic murmur, No extra beats Skin: normal color, warm/dry, No cyanosis, No diaphoresis Extremities: pedal edema (Two to 3+), No non-tender Neuro/Psych: alert, normal mood/affect, motor weakness (Dense hemiparesis) ICD10 Worksheet Patient Problems: Problems Problem Status Onset CVA (cerebral vascular accident) Acute Thyroid mass Acute thyroid mass Acute
== END 2017-09-07 16:00 | DRG 57 ==
LOC: BREH 13:45
PROVIDERS: ADMIT Internal Medicine; ATTEND Internal Medicine
PROC: F07M3ZZ Motor Function Treatment of Musculoskeletal System - Whole Body (ICD-10-PCS; principal; 2017-08-23)
PROC: F0636ZZ Communicative/Cognitive Integration Skills Treatment of Neurological System - Whole Body (ICD-10-PCS; principal; 2017-08-23)
PROC: F08Z7ZZ Vocational Activities and Functional Community or Work Reintegration Skills Treatment (ICD-10-PCS; principal; 2017-08-23)
PROC: 02HV33Z Insertion of Infusion Device into Superior Vena Cava, Percutaneous Approach (ICD-10-PCS; 2017-08-28)
DX: I69.351 Hemiplegia and hemiparesis following cerebral infarction affecting right dominant side (principal); I69.822 Dysarthria following other cerebrovascular disease; I69.891 Dysphagia following other cerebrovascular disease; E11.22 Type 2 diabetes mellitus with diabetic chronic kidney disease; N18.3 Chronic kidney disease, stage 3 (moderate); Z79.4 Long term (current) use of insulin; Z79.84 Long term (current) use of oral hypoglycemic drugs; E86.1 Hypovolemia; E87.79 Other fluid overload; J44.9 Chronic obstructive pulmonary disease, unspecified; R91.1 Solitary pulmonary nodule; I10 Essential (primary) hypertension; R32 Unspecified urinary incontinence; E78.5 Hyperlipidemia, unspecified; Z86.718 Personal history of other venous thrombosis and embolism; Z79.82 Long term (current) use of aspirin; E89.0 Postprocedural hypothyroidism; Z85.850 Personal history of malignant neoplasm of thyroid
CPT/HCPCS: 92507-GN; 92508-GN; 92523-GN; 92526-GN; 92610-GN; 97110-GO; 97110-GP; 97112-GO; 97112-GP; 97162-GP; 97167-GO; 97530-GO; 97530-GP; 97535-GO; 97542-GP; 99366-GN; 99366-GO; C1751; J1650; J1815